=== PATIENT | male | born 1930 | race Caucasian/White ===

== ENCOUNTER 2016-06-13 01:35 | Inpatient (IN) | payer OTHER ==
[~2016-06-13] VITALS: Ht 185.4 cm; Wt 98.3 kg
[~2016-06-13 01:35] MED LIST: CMD5 PO; ENOX0.8I8 SQ
[2016-06-13] MEDS ORDERED: ALBUT/IPRATROP 3MG/0.5MG NEB 3 ML VIAL INH STA (02:20)
[2016-06-13] MEDS ORDERED: METHYLPREDNISOLONE 125 MG VIAL IV STA (02:20)
[2016-06-13] MEDS ORDERED: WARF5TAB90 PO (02:23)
[2016-06-13 03:10] LABS: BASO % 0.7 %; BASO ABS # 0.05 K/uL (0-0.2); COMPLETE YES; EOS % 6.6 %; HEMATOCRIT 44.8 % (42-52); IG% 0.1 %; LYMPH ABS # 1.13 K/uL (1.2-3.4); MEAN CELL VOLUME 92.2 fL (80-100); MEAN CORPUSCULAR HEMOGLOBIN 32.5 pg (25-34); MEAN CORPUSCULAR HGB CONC 35.3 g/dl (32-36); MEAN PLATELET VOLUME 9.9 fL (7.4-10.4); MONO % 8.9 %; NEUT % 67.7 %; PLATELET COUNT 176 K/uL (130-400); RED BLOOD COUNT 4.86 M/uL (4.7-6.1); WHITE BLOOD COUNT 7.08 K/uL (4.8-10.8)
[2016-06-13 03:13] LABS: POINT OF CARE TROPONIN I 0.02 ng/ml (0-0.045)
[2016-06-13 03:19] LABS: INR 2.7 (0.9-1.1); PARTIAL THROMBOPLASTIN RATIO 1.4; PROTHROMBIN TIME (PATIENT) 29.7 SECONDS (9.0-12.0)
[2016-06-13 03:29] LABS: BUN/CREATININE RATIO 15.4 (10-20); CREATININE 0.91 mg/dl (0.60-1.40); POTASSIUM 3.9 mmol/L (3.5-5.1)
[2016-06-13 03:34] LABS: ALB/GLOB RATIO 1.2 (0.9-2); CKMB/CK RATIO 2.8 (0-3.0)
[2016-06-13] MEDS ORDERED: ONDANSETRON INJ 2 MG/ML 2 ML VIAL IV PRN (05:00)
[2016-06-13] MEDS ORDERED: LEVALBUTEROL/IPRATROPIUM NEB INH PRN (05:00)
[2016-06-13] MEDS ORDERED: LACTATED RINGER'S 1000ML 1,000 ML IV ONE (05:00)
[2016-06-13] MEDS ORDERED: TRAMADOL HCL 50 MG TAB PO PRN (05:00)
[2016-06-13] MEDS ORDERED: ACETAMINOPHEN 325 MG TAB PO PRN (05:00)
--- NOTE | 2016-06-13 05:04 | EMERGENCY ROOM VISIT NOTE ---
History Report prepared by Rey: Nancy Tamayo Under the Supervision of: Dr. Wander Anderson M.D. First contact with patient: 02:19 Chief Complaint: SHORTNESS OF BREATH Stated Complaint: SHORTNESS OF BREATH,RAPID PULSE,BACK PAIN Nursing Triage Summary: sob started a week ago and has increased, using inhaler with little relief, cough, having trouble sleeping unless in chair, tongiht develoepd lower left back pain last wednesday had bladder ca treatment History of Present Illness The patient is an 85 year old male who presents to the Emergency Room with complaints of worsening shortness of breath with onset one week ago. The patient is a retired doctor. He had been having upper respiratory infection symptoms in the past few days, including have a dry cough. Tonight, the patient is having left sided pleuritic pain on inhalation.He has been having inspiratory and expiratory wheezing. Tonight, his shortness of breath was worsened to the point of not being able to lie flat. He has been taking Ventolin , last taking a puff one hour ago. He notes that this is not normal for him as usually he is fit, exercising daily. Now he is having difficulty walking short distances. The patient notes that he is currently being treated for bladder cancer. He is on Coumadin for a history of PE. He denies cardiac history. The patient has had his flu shot this year. He has a childhood history of reactive airway disease. Pt denies LOC, headache, fevers, chills, diaphoresis, visual changes, neck pain, chest pain, nausea, vomiting, abdominal pain, back pain, melena, hematochezia, urinary symptoms, numbness, weakness, lymphadenopathy, rash, or other complaints. Source of History: patient Onset: one week ago Position: chest Quality: other (shortness of breath) Timing: other Modifying Factors (Worsening): other (lying flat) Review of Systems See HPI for pertinent positives and negatives. A total of ten systems were reviewed and were otherwise negative. Past Medical & Surgical Medical Problems: (1) Anticoagulated on Coumadin (2) Bladder CA in situ (3) DVT (deep venous thrombosis) (4) Localized, primary osteoarthritis of the lower leg (5) Pulmonary embolism (6) Respiratory failure, acute Surgical Problems: (1) S/P cholecystectomy Family History No pertinent family history Social History Smoking Status: Never Smoker Drug Use: none Housing Status: lives with family Occupation Status: retired Current/Historical Medications Scheduled Warfarin Sodium (Coumadin), 5 MG PO DAILY Allergies Coded Allergies: NSAIDs (Verified Allergy, Severe, WHEEZING, 06/10/16) Physical Exam Vital Signs Date Time Temp Pulse Resp B/P Pulse Ox O2 Delivery O2 Flow Rate FiO2 06/13/16 03:14 98 18 149/78 95 06/13/16 02:15 91 06/13/16 02:10 93 Nasal Cannula 2.0 06/13/16 02:01 91 Room Air 06/13/16 01:43 36.6 97 24 158/80 92 Room Air Physical Exam GENERAL: Awake, alert, dyspneic, in no distress HENT: Normocephalic, atraumatic. Oropharynx unremarkable. EYES: Normal conjunctiva. Sclera non-icteric. NECK: Supple. No nuchal rigidity. FROM. No JVD. RESPIRATORY: Respiratory wheezes bilaterally. CARDIAC: Regular rate, normal rhythm. Extremities warm and well perfused. Pulses equal. ABDOMEN: Soft, non-distended. No tenderness to palpation. No rebound or guarding. No masses. RECTAL: Deferred. MUSCULOSKELETAL: Chest examination reveals no tenderness. The back is symmetrical on inspection without obvious abnormality. There is no CVA tenderness to palpation. No joint edema. LOWER EXTREMITIES: Right calf is slightly larger than the left but both are non- tender. 2+ edema. Chronic venous discoloration. NEURO: Normal sensorium. No sensory or motor deficits noted. SKIN: No rash or jaundice noted. Medical Decision & Procedures ER Provider Diagnostic Interpretation: Chest x-ray. Findings: A chest x-ray was performed and revealed no pneumothorax , effusion, infiltrate, pulmonary edema, free air under the diaphragm, or wide mediastinum. Laboratory Results 06/13/16 02:40 Red Blood Count 4.86, Mean Corpuscular Volume 92.2, Mean Corpuscular Hemoglobin 32.5, Mean Corpuscular Hemoglobin Concent 35.3, Mean Platelet Volume 9.9, Neutrophils (%) (Auto) 67.7, Lymphocytes (%) (Auto) 16.0, Monocytes (%) (Auto) 8.9, Eosinophils (%) (Auto) 6.6, Basophils (%) (Auto) 0.7, Neutrophils # (Auto) 4.79, Lymphocytes # (Auto) 1.13, Monocytes # (Auto) 0.63, Eosinophils # (Auto) 0.47, Basophils # (Auto) 0.05 06/13/16 02:40 Test 06/13/16 02:40 06/13/16 02:50 06/13/16 02:53 06/13/16 03:00 White Blood Count 7.08 K/uL (4.8-10.8) Red Blood Count 4.86 M/uL (4.7-6.1) Hemoglobin 15.8 g/dL (14.0-18.0) Hematocrit 44.8 % (42-52) Mean Corpuscular Volume 92.2 fL (80-100) Mean Corpuscular Hemoglobin 32.5 pg (25-34) Mean Corpuscular Hemoglobin Concent 35.3 g/dl (32-36) Platelet Count 176 K/uL (130-400) Mean Platelet Volume 9.9 fL (7.4-10.4) Neutrophils (%) (Auto) 67.7 % Lymphocytes (%) (Auto) 16.0 % Monocytes (%) (Auto) 8.9 % Eosinophils (%) (Auto) 6.6 % Basophils (%) (Auto) 0.7 % Neutrophils # (Auto) 4.79 K/uL (1.4-6.5) Lymphocytes # (Auto) 1.13 K/uL (1.2-3.4) Monocytes # (Auto) 0.63 K/uL (0.11-0.59) Eosinophils # (Auto) 0.47 K/uL (0-0.5) Basophils # (Auto) 0.05 K/uL (0-0.2) RDW Standard Deviation 45.5 fL (36.4-46.3) RDW Coefficient of Variation 13.5 % (11.5-14.5) Immature Granulocyte % (Auto) 0.1 % Immature Granulocyte # (Auto) 0.01 K/uL (0.00-0.02) Prothrombin Time 29.7 SECONDS (9.0-12.0) Prothromb Time International Ratio 2.7 (0.9-1.1) Activated Partial Thromboplast Time 36.8 SECONDS (21.0-31.0) Partial Thromboplastin Ratio 1.4 Anion Gap 9.0 mmol/L (3-11) Est Creatinine Clear Calc Drug Dose 76.4 ml/min Estimated GFR () 90.0 Estimated GFR (Non- 77.7 BUN/Creatinine Ratio 15.4 (10-20) Calcium Level 9.0 mg/dl (8.5-10.1) Total Bilirubin 0.6 mg/dl (0.2-1) Aspartate Amino Transf (AST/SGOT) 19 U/L (15-37) Alanine Aminotransferase (ALT/SGPT) 26 U/L (12-78) Alkaline Phosphatase 76 U/L (45-117) Total Creatine Kinase 213 U/L (39-308) Creatine Kinase MB 5.9 ng/ml (0.5-3.6) Creatine Kinase MB Ratio 2.8 (0-3.0) Total Protein 7.0 gm/dl (6.4-8.2) Albumin 3.8 gm/dl (3.4-5.0) Globulin 3.2 gm/dl (2.5-4.0) Albumin/Globulin Ratio 1.2 (0.9-2) Bedside D-Dimer 290 ng/mlFEU (0-450) Bedside Troponin I 0.020 ng/ml (0-0.045) HM-Umq-I-Type Natriuretic Peptide 142 pg/ml (0-1800) Bedside Lactic Acid Venous 1.00 mmol/L (0.90-1.70) Influenza Type A Antigen Neg for Influ A (NEG) Influenza Type B Antigen Neg for Influ B (NEG) Test 06/13/16 04:16 Laboratory results reviewed by me Medications Administered Medications (Trade) Dose Ordered Sig/Marline Route Start Time Stop Time Status Last Admin Dose Admin Albuterol/ Ipratropium (Duoneb) 3 ml NOW STAT INH 06/13/16 02:20 06/13/16 02:23 DC 06/13/16 02:51 3 ML Methylprednisolone Sodium Succinate (Solu-Medrol IV) 125 mg NOW STAT IV 06/13/16 02:20 06/13/16 02:23 DC 06/13/16 03:09 125 MG ECG Indication: SOB/dyspnea Rate (beats per minute): 89 Rhythm: normal sinus Findings: nonspecific-ST abn, no acute ischemic change ED Course 0230: The patient was evaluated in room B9. A complete history and physical exam was performed. Medical Decision Triage Nursing notes reviewed. The patient's presentation and history were concerning for shortness of breath and hypoxia. Etiologies such as pneumonia, COPD, reactive airway disease, CHF, cardiac ischemia, pulmonary embolism, pneumothorax, musculoskeletal, infections, gastrointestinal, as well as others were entertained. Patient was evaluated. He had wheezing on examination. The patient was given a DuoNeb. He was feeling better with this. He had hypoxia noted at home down to 86 for his home pulse oximeter. He was down to 90-91 year in the Emergency Room. He was doing better with supplemental oxygen. Due to the wheezing I discussed the use of steroids. He had recently been given BCG. Given the wheezing anything steroids are indicated. The patient was in agreement. CBC was unremarkable. INR was therapeutic. The patient had an negative chemistry panel, and LFTs. BNP, troponin, and d-dimer were all negative. The patient's chest x-ray revealed no evidence of pneumonia. He does have a remote history of reactive airways. This seems to be most consistent with a reactive airway/ COPD type of issue. The patient is requiring supplemental oxygen. Consultation was made with Dr. Artis. The patient was evaluated in the Emergency Room and admitted for further treatment. The chart was completed utilizing [employer] Speech voice recognition software. Grammatical errors, random word insertions, pronoun errors, and incomplete sentences are an occasional consequence of this system due to software limitations, ambient noise, and hardware issues. Any formal questions or concerns about the content, text, or information contained within the body of this dictation should be directly addressed to the physician for clarification. Impression Primary Impression: Reactive airway disease Additional Impressions: therapeutic INR Hypoxia Scribe Attestation The scribe's documentation has been prepared under my direction and personally reviewed by me in its entirety. I confirm that the note above accurately reflects all work, treatment, procedures, and medical decision making performed by me. Departure Information Dispostion Being Evaluated By Hospitalist Referrals Wander Harvey III, M.D. (PCP) Patient Instructions My [facility] Problem Qualifiers
[2016-06-13] MEDS ORDERED: LEVALBUTEROL 1.25MG/0.5ML NEB INH PRN (05:15)
[2016-06-13] MEDS ORDERED: IPRATROPIUM BROMIDE NEB SOLN 0.02% 2.5 ML VIAL INH PRN (05:15)
[2016-06-13 05:21] LABS: ARTERIAL BLOOD GAS HCO3 28 mmol/L (19-24); ARTERIAL BLOOD GAS PO2 80 mm/Hg (80-95); ARTERIAL BLOOD GAS pH 7.43 (7.35-7.45)
[2016-06-13 05:23] LABS: ALLEN TEST POS (POS); O2 ADMINISTRATION 2L
[2016-06-13 05:49] LABS: MAGNESIUM 2.2 mg/dl (1.8-2.4); THYROID STIMULATING HORMONE 1.9 uIu/ml (0.300-4.500)
[2016-06-13 06:34] VITALS: BP 172/81; PULSE 100; TEMP 36.4; O2SAT 92; Ht 185.4 cm; Wt 98.3 kg
[2016-06-13 06:52] LABS: URINE APPEARANCE CLEAR (CLEAR); URINE BILIRUBIN NEG (NEG); URINE COLOR DK YELLOW; URINE NITRITE NEG (NEG); URINE SPECIFIC GRAVITY 1.017 (1.000-1.030); UROBILINOGEN NEG (NEG)
[2016-06-13 06:58] LABS: MANUAL MICROSCOPIC REQUIRED? NO; REVIEW REQ? NO
--- NOTE | 2016-06-13 08:43 | HISTORY & PHYSICAL EXAMINATION ---
DATE OF ADMISSION: 06/13/2016 PRIMARY CARE DOCTOR: Dr. Harvey. CHIEF COMPLAINT: Shortness of breath, low O2 sats. HISTORY OF PRESENT ILLNESS: Medical history significant for history of pulmonary embolism on anticoagulation , recent diagnosis of bladder cancer sp surgery sp intravesical BCG txm asthma as per records, skin cancer as per records. Recent confinement October 2013 for cholelithiasis sp cholecystectomy. Px received flu shot last week. Few days history of dry cough symptoms, increasing shortness of breath. Denies aspiration. Denies fever, chills. At home O2 sats 80s on pluse ox. Sx not improving with inhalers. At the Emergency Room, the patient received Solu-Medrol, albuterol for bronchitis. MEDICAL HISTORY: As above. SURGERIES: He has had knee surgery, appendectomy, cholecystectomy, bladder tumor removal, cataract surgery, hip surgery. HOME MEDICATIONS: Include Coumadin. ALLERGIES: NSAIDS. FAMILY HISTORY: Family history of heart disease. PERSONAL AND SOCIAL HISTORY: nonsmoker, no chronic intake of alcohol. Retired physician. REVIEW OF SYSTEMS: As per HPI, all other ROS negative. PHYSICAL EXAMINATION: VITAL SIGNS: Blood pressure was noted to be 140/80, pulse rate 92, RR 22, temperature 36.4, sats 94 on 2 liters. GENERAL: Noted to be in minimal respiratory distress, looks younger for stated age. SKIN: Normal color. HEAD, EYES, EARS, NOSE, AND THROAT: Closter palpebral conjunctivae. Dry mucosa. nasal cannula in place NECK: No JVD. supple CHEST: Decreased breath sounds. Expiratory wheezes. HEART: Regular rate and rhythm. ABDOMEN: Soft. EXTREMITIES: Venous stasis. NEUROLOGIC EXAMINATION: No gross focality. LABORATORY DATA: Hemoglobin was noted to be 15.8, hematocrit 44.8. White cell count noted to be 7, platelets noted to be 176. Sodium 140, chloride 103, CO2 27, BUN 40, creatinine 0.9, glucose 105. trop 0, ddimer N, INR 2.2 Chest x-ray elevated hemidiaphragm, no infiltrate. ASSESSMENT AND PLAN: 1. Acute hypoxemic respiratory failure secondary to bronchitis. No sepsis. 2. hx PE o coumadin INR tx 3. History of bladder cancer status post surgery recent intravesical BCG tx. PLAN: GMF Supplemental O2. Baseline ABG. nebs. steroids RTC, prn. DVT prophylaxis. Coumadin INR 2-3. FULL CODE. MTDD
[2016-06-13] MEDS: LEVALBUTEROL 1.25MG/0.5ML NEB INH SCH ×3 (09:00→19:48)
[2016-06-13] MEDS ORDERED: LEVALBUTEROL/IPRATROPIUM NEB INH SCH (09:00)
[2016-06-13] MEDS: IPRATROPIUM BROMIDE NEB SOLN 0.02% 2.5 ML VIAL INH SCH ×3 (09:00→19:48)
[2016-06-13 10:02] VITALS: PULSE 64; O2SAT 94
--- NOTE | 2016-06-13 10:05 | DIAGNOSTIC IMAGING REPORT ---
SINGLE VIEW CHEST CLINICAL HISTORY: Wheezing. Dyspnea. FINDINGS: 2 AP, portable, upright chest radiographs are compared to study dated 04/09/2011. The examination is degraded by portable technique and patient rotation. The heart is top normal for projection. There is atherosclerotic calcification of the thoracic aorta. The pulmonary vasculature is noncongested. Findings suggest emphysema. Chronic interstitial thickening is unchanged. No airspace consolidation or large pleural effusion is identified. There is mild elevation of left hemidiaphragm with associated left basilar atelectasis. Apical scarring is observed. No pneumothorax is seen. The skeletal structures are osteopenic. The bony thorax is grossly intact. IMPRESSION: Findings suggest emphysema. There is no acute cardiopulmonary abnormality. Electronically signed by: Navid Fuentes M.D. 06/13/2016 10:03 AM Dictated Date/Time: 06/13/2016 10:01 AM
[2016-06-13] MEDS: METHYLPREDNISOLONE IV 40 MG in SYRINGE 0 ML IV SCH ×2 (11:49→19:52)
[2016-06-13 14:42] VITALS: PULSE 91; O2SAT 95
[2016-06-13 15:22] VITALS: BP 153/77; PULSE 81; TEMP 36.6; O2SAT 91
[2016-06-13] MEDS ORDERED: BENZONATATE 100MG CAP PO ONE (16:00)
[2016-06-13] MEDS ORDERED: WARFARIN SOD 5 MG TAB PO SCH (16:00)
[2016-06-13 19:49] VITALS: PULSE 98; O2SAT 95
[2016-06-13 20:00] VITALS: O2SAT 93
[2016-06-13] MEDS: BENZONATATE 100MG CAP PO SCH (21:12)
[2016-06-13] MEDS ORDERED: COUGH DROP (SUGAR FREE) LOZ 24 LOZ/1 BOX PO PRN (23:30)
[2016-06-14] VITALS (9 sets, daily range): BP systolic 114–159; BP diastolic 73–82; PULSE 61–102; TEMP 36.4–36.7; O2SAT 92–96
[2016-06-14] MEDS: IPRATROPIUM BROMIDE NEB SOLN 0.02% 2.5 ML VIAL INH SCH ×3 (02:03→13:40)
[2016-06-14] MEDS: LEVALBUTEROL 1.25MG/0.5ML NEB INH SCH ×3 (02:03→13:40)
[2016-06-14] MEDS: METHYLPREDNISOLONE IV 40 MG in SYRINGE 0 ML IV SCH ×3 (03:54→19:45)
[2016-06-14 07:21] LABS: COMPLETE YES; IG% 0.1 %; LYMPH % 6.3 %; LYMPH ABS # 0.55 K/uL (1.2-3.4); MEAN CELL VOLUME 92.6 fL (80-100); MEAN CORPUSCULAR HEMOGLOBIN 33.2 pg (25-34); MEAN CORPUSCULAR HGB CONC 35.9 g/dl (32-36); MEAN PLATELET VOLUME 9.6 fL (7.4-10.4); MONO % 4.2 %; NEUT % 89.4 %; PLATELET COUNT 166 K/uL (130-400); RED BLOOD COUNT 4.43 M/uL (4.7-6.1); WHITE BLOOD COUNT 8.78 K/uL (4.8-10.8)
[2016-06-14 07:25] LABS: INR 3.3 (0.9-1.1); PROTHROMBIN TIME (PATIENT) 37.5 SECONDS (9.0-12.0)
[2016-06-14] MEDS: BENZONATATE 100MG CAP PO SCH ×3 (08:57→21:27)
--- NOTE | 2016-06-14 09:20 | DIAGNOSTIC IMAGING REPORT ---
CHEST 2 VIEWS ROUTINE CLINICAL HISTORY: Bronchitis/Pneumonia SHORTNESS OF BREATH, COUGH. COMPARISON STUDY: 06/13/2016 FINDINGS: The patient is mildly hyperinflated. The heart is normal in size. There is no focal pulmonary consolidation. Rounded opacities of both lung bases are felt to represent nipple shadows. There are subsegmental right basilar atelectatic changes.[ There is suspected right lower lobe bronchial wall thickening IMPRESSION: 1. Hyperinflation 2. Mild chronic interstitial thickening. No evidence of lobar consolidation 3. Right basilar subsegmental atelectasis 4. Suspected mild right lower lobe bronchial wall thickening Electronically signed by: Jimmy Smith M.D. 06/14/2016 9:18 AM Dictated Date/Time: 06/14/2016 9:16 AM
--- NOTE | 2016-06-14 13:09 | Progress Note ---
Internal Med Progress Note Date of Service: Jun 14, 2016. Provider Documentation: SUBJECTIVE: The patient was seen and examined Feels a lot better today Ambulating without any difficulty OBJECTIVE: Vital Signs-as noted below Exam: General-No distress at rest Eyes-normal ENT-normal Neck-supple Lungs-Minimally decreased breath sound bilaterally No wheezing Heart-Regular,no murmur Abdomen-Benign,no masses,bowel sound present Extremities-No edema Neuro-AAOx3 Lab data as noted below. ASSESSMENT & PLAN: Acute hypoxemic respiratory failure secondary to bronchitis. S/P Treatment for Flu as an OP Denies any H/O COPD/Asthma CXR -Emphysema No sepsis. Oxygen and Steroid and Bronchodilators Check CXR -no infiltration No signs of infection No antibiotic 2 step before discharge History of bladder cancer status post surgery recent intravesical BCG tx. H/O PE on Coumadin INR therapeutic DVT prophylaxis. Coumadin INR 2-3. FULL CODE. Vital Signs: Date Time Temp Pulse Resp B/P Pulse Ox O2 Delivery O2 Flow Rate FiO2 06/14/16 07:45 Nasal Cannula 2.0 06/14/16 07:25 36.7 95 18 114/73 96 Nasal Cannula 2.0 06/14/16 07:05 93 16 95 Nasal Cannula 2.0 96 06/14/16 02:03 83 16 95 Nasal Cannula 2.0 06/14/16 00:14 36.4 102 20 149/82 92 Nasal Cannula 2.0 06/14/16 00:00 93 Nasal Cannula 2.0 Humidified Oxygen 06/13/16 20:00 93 Nasal Cannula 2.0 Humidified Oxygen 06/13/16 19:49 98 16 95 Nasal Cannula 2.0 06/13/16 15:45 Nasal Cannula 3.0 06/13/16 15:22 36.6 81 20 153/77 91 Nasal Cannula 2.0 06/13/16 14:42 91 16 95 Nasal Cannula 2.0 Lab Results: Results Past 24 Hours Test 06/14/16 06:52 Range/Units White Blood Count 8.78 4.8-10.8 K/uL Red Blood Count 4.43 4.7-6.1 M/uL Hemoglobin 14.7 14.0-18.0 g/dL Hematocrit 41.0 42-52 % Mean Corpuscular Volume 92.6 80-100 fL Mean Corpuscular Hemoglobin 33.2 25-34 pg Mean Corpuscular Hemoglobin Concent 35.9 32-36 g/dl Platelet Count 166 130-400 K/uL Mean Platelet Volume 9.6 7.4-10.4 fL Neutrophils (%) (Auto) 89.4 % Lymphocytes (%) (Auto) 6.3 % Monocytes (%) (Auto) 4.2 % Eosinophils (%) (Auto) 0.0 % Basophils (%) (Auto) 0.0 % Neutrophils # (Auto) 7.85 1.4-6.5 K/uL Lymphocytes # (Auto) 0.55 1.2-3.4 K/uL Monocytes # (Auto) 0.37 0.11-0.59 K/uL Eosinophils # (Auto) 0.00 0-0.5 K/uL Basophils # (Auto) 0.00 0-0.2 K/uL RDW Standard Deviation 46.3 36.4-46.3 fL RDW Coefficient of Variation 13.7 11.5-14.5 % Immature Granulocyte % (Auto) 0.1 % Immature Granulocyte # (Auto) 0.01 0.00-0.02 K/uL Prothrombin Time 37.5 9.0-12.0 SECONDS Prothromb Time International Ratio 3.3 0.9-1.1
[2016-06-14] MEDS ORDERED: NURSING VERBAL MED ORDER ONE (13:45)
[2016-06-14] MEDS: LEValbuterol HFA 15GM INHALER INH SCH ×2 (21:28→23:52)
[2016-06-14] MEDS: IPRATROPIUM BROMIDE HFA INHALER INH SCH ×2 (22:02→23:51)
[2016-06-15] VITALS: O2SAT 93
[2016-06-15 00:20] VITALS: BP 156/80; PULSE 90; TEMP 36.4; O2SAT 92
[2016-06-15] MEDS: METHYLPREDNISOLONE IV 40 MG in SYRINGE 0 ML IV SCH ×2 (04:11→11:34)
[2016-06-15] MEDS: IPRATROPIUM BROMIDE HFA INHALER INH SCH ×2 (06:11→11:35)
[2016-06-15] MEDS: LEValbuterol HFA 15GM INHALER INH SCH ×2 (06:11→11:34)
[2016-06-15 06:19] LABS: COMPLETE YES; HEMATOCRIT 43.8 % (42-52); IG% 0.3 %; LYMPH % 4.7 %; LYMPH ABS # 0.49 K/uL (1.2-3.4); MEAN CELL VOLUME 92.8 fL (80-100); MEAN CORPUSCULAR HEMOGLOBIN 32.2 pg (25-34); MEAN CORPUSCULAR HGB CONC 34.7 g/dl (32-36); MEAN PLATELET VOLUME 9.6 fL (7.4-10.4); MONO % 5.1 %; NEUT % 89.9 %; PLATELET COUNT 181 K/uL (130-400); RED BLOOD COUNT 4.72 M/uL (4.7-6.1); WHITE BLOOD COUNT 10.52 K/uL (4.8-10.8)
[2016-06-15 06:57] LABS: INR 2.9 (0.9-1.1); PROTHROMBIN TIME (PATIENT) 32.3 SECONDS (9.0-12.0)
[2016-06-15 07:07] VITALS: BP 137/75; PULSE 86; TEMP 36.5; O2SAT 92
--- NOTE | 2016-06-15 08:52 | Clinical Documentation Query ---
[facility] CL[facility]ICAL [facility] QUERY Clinical documentation includes a diagnosis of: Acute Hypoxemic Respiratory Failure. Due to stringent requirements by our coding department, multiple clinical indicators associated with this diagnosis must be present in order for this to be coded/captured within the medical record. If appropriate, please document 2 or more of the following clinical indicators in daily progress notes and the discharge summary. If you feel the diagnosis of acute respiratory failure was made in error, or do not agree with it, simply discontinue documentation thereof. Acute Respiratory Failure indicators include:On Admission:Air hunger,Use of accessory muccles of Respiration ,inability to speak full sentance * Respirations >28 * Air hunger * Use of accessory muscles of respiration * Inability to speak in full sentences * Cyanosis * Pulse ox <90% RA or <95% on O2 *pH <7.35 or >7.45 * pO2 < 60 mm Hg (or 10mm below COPD patient's baseline) * pCO2 >50mm Hg (or 10mm above COPD patient's baseline) * mechanical ventilation * Increased work of breathing * Tachypnea IF IN AGREEMENT, YOU MUST DOCUMENT ABOVE DIAGNOSTIC STATEMENT IN DAILY PROGRESS NOTES AND DISCHARGE SUMMARY. This document is not part of the patient's record. Thank You, Samson Pardo, RN [phone]
[2016-06-15] MEDS: BENZONATATE 100MG CAP PO SCH (09:37)
--- NOTE | 2016-06-15 11:27 | Progress Note ---
Internal Med Progress Note Date of Service: Jun 15, 2016. Provider Documentation: SUBJECTIVE: The patient was seen and examined Feels a lot better Ambulating without any difficulty Wants to go home Will have 2 steps before discharge OBJECTIVE: Vital Signs-as noted below Exam: General-No distress at rest Eyes-normal ENT-normal Neck-supple Lungs-Minimally decreased breath sound bilaterally No wheezing Heart-Regular,no murmur Abdomen-Benign,no masses,bowel sound present Extremities-No edema Neuro-AAOx3 Lab data as noted below. ASSESSMENT & PLAN: Acute hypoxemic respiratory failure secondary to bronchitis. S/P Treatment for Flu as an OP Denies any H/O COPD/Asthma Admitted with SOB,Excessive use of accessory muscles of respiration,Tachypnea - 24/min CXR -Emphysema No sepsis. Oxygen and Steroid and Bronchodilators Check CXR -no infiltration : No antibiotics Clinically much better ,ambulating without any difficulty 2 step before discharge today History of bladder cancer status post surgery recent intravesical BCG tx. H/O PE on Coumadin INR therapeutic DVT prophylaxis. Coumadin INR 2-3. FULL CODE. Vital Signs: Date Time Temp Pulse Resp B/P Pulse Ox O2 Delivery O2 Flow Rate FiO2 06/15/16 07:07 36.5 86 20 137/75 92 Room Air 06/15/16 00:20 36.4 90 20 156/80 92 2.0 06/15/16 00:00 93 Room Air 2.0 Nasal Cannula Humidified Oxygen 06/14/16 20:00 93 Room Air 2.0 Nasal Cannula Humidified Oxygen 06/14/16 16:11 36.5 100 16 159/80 94 Nasal Cannula 2.0 06/14/16 15:50 Nasal Cannula 2.0 06/14/16 15:42 36.5 100 16 159/80 94 Nasal Cannula 2.0 06/14/16 13:40 61 16 96 Nasal Cannula 2.0 Lab Results: Results Past 24 Hours Test 06/15/16 05:50 Range/Units White Blood Count 10.52 4.8-10.8 K/uL Red Blood Count 4.72 4.7-6.1 M/uL Hemoglobin 15.2 14.0-18.0 g/dL Hematocrit 43.8 42-52 % Mean Corpuscular Volume 92.8 80-100 fL Mean Corpuscular Hemoglobin 32.2 25-34 pg Mean Corpuscular Hemoglobin Concent 34.7 32-36 g/dl Platelet Count 181 130-400 K/uL Mean Platelet Volume 9.6 7.4-10.4 fL Neutrophils (%) (Auto) 89.9 % Lymphocytes (%) (Auto) 4.7 % Monocytes (%) (Auto) 5.1 % Eosinophils (%) (Auto) 0.0 % Basophils (%) (Auto) 0.0 % Neutrophils # (Auto) 9.46 1.4-6.5 K/uL Lymphocytes # (Auto) 0.49 1.2-3.4 K/uL Monocytes # (Auto) 0.54 0.11-0.59 K/uL Eosinophils # (Auto) 0.00 0-0.5 K/uL Basophils # (Auto) 0.00 0-0.2 K/uL RDW Standard Deviation 46.8 36.4-46.3 fL RDW Coefficient of Variation 13.8 11.5-14.5 % Immature Granulocyte % (Auto) 0.3 % Immature Granulocyte # (Auto) 0.03 0.00-0.02 K/uL Prothrombin Time 32.3 9.0-12.0 SECONDS Prothromb Time International Ratio 2.9 0.9-1.1
[2016-06-15] MEDS ORDERED: PRVHFAIN INH (12:48)
[2016-06-15] MEDS ORDERED: PRD10 PO (12:48)
[2016-06-15] MEDS ORDERED: OXGN (12:49)
--- NOTE | 2016-06-15 12:51 | Discharge Instructions ---
Discharge Instructions Admission Reason for Admission: Respiratory Failure, Acute Discharge Discharge Diagnosis / Problem: COPD exacerbation Discharge Goals Goal(s): Prevent Disease Progression Activity Recommendations Activity Limitations: resume your previous activity . Instructions / Follow-Up Instructions / Follow-Up Dr Harvey on 06/22/2016 at 11:10AM Current Hospital Diet Patient's current hospital diet: AHA Diet (Heart Healthy) Discharge Diet Recommended Diet: Regular Diet Pending Studies Studies pending at discharge: no Medical Emergencies . Who to Call and When: Medical Emergencies: If at any time you feel your situation is an emergency, please call 911 immediately. . Non-Emergent Contact Non-Emergency issues call your: Primary Care Provider . . "Provider Documentation" section prepared by Mandy Horn. VTE Core Measure Inpt VTE Proph given/why not?: SCD's (Was ambulant)
[2016-06-15 12:57] VITALS: BP 137/75; PULSE 86; TEMP 36.5; O2SAT 92
--- NOTE | 2016-06-16 08:28 | Discharge Summary ---
Discharge Summary Admission Date: Jun 13, 2016 at 04:24 Discharge Date: Jun 15, 2016 Discharge Disposition: Home Principal Diagnosis: Acute Hypoxic Respiratory failure secondary to Bronchitis,Emphysema Secondary Diagnoses/Problems: Please see H&P Medication Reconciliation New Medications: Albuterol (Ventolin Hfa) 60 Puffs/5400 Mcg Aers 2 PUFF INH Q6HWA PRN for Wheezing, #1 Oxygen (Oxygen) Gas 2 LITERS NA PRN, #1 Prednisone (Prednisone) 10 Mg Tab 10 MG PO UD, #30 4 po daily for 3 days,3 po daily for 3 days,2 po daily for 3 days and then 1 po daily for 3 days Continued Medications: Warfarin Sodium (Coumadin) 5 Mg Tab 5 MG PO DAILY, TAB Admission Information HPI (per Admitting provider): DATE OF ADMISSION: 06/13/2016 PRIMARY CARE DOCTOR: Dr. Harvey. CHIEF COMPLAINT: Shortness of breath, low O2 sats. HISTORY OF PRESENT ILLNESS: Medical history significant for history of pulmonary embolism on anticoagulation , recent diagnosis of bladder cancer sp surgery sp intravesical BCG txm asthma as per records, skin cancer as per records. Recent confinement October 2013 for cholelithiasis sp cholecystectomy. Px received flu shot last week. Few days history of dry cough symptoms, increasing shortness of breath. Denies aspiration. Denies fever, chills. At home O2 sats 80s on pluse ox. Sx not improving with inhalers. At the Emergency Room, the patient received Solu-Medrol, albuterol for bronchitis. MEDICAL HISTORY: As above. SURGERIES: He has had knee surgery, appendectomy, cholecystectomy, bladder tumor removal, cataract surgery, hip surgery. HOME MEDICATIONS: Include Coumadin. ALLERGIES: NSAIDS. FAMILY HISTORY: Family history of heart disease. PERSONAL AND SOCIAL HISTORY: nonsmoker, no chronic intake of alcohol. Retired physician. REVIEW OF SYSTEMS: As per HPI, all other ROS negative. PHYSICAL EXAMINATION: VITAL SIGNS: Blood pressure was noted to be 140/80, pulse rate 92, RR 22, temperature 36.4, sats 94 on 2 liters. GENERAL: Noted to be in minimal respiratory distress, looks younger for stated age. SKIN: Normal color. HEAD, EYES, EARS, NOSE, AND THROAT: [place] palpebral conjunctivae. Dry mucosa. nasal cannula in place NECK: No JVD. supple CHEST: Decreased breath sounds. Expiratory wheezes. HEART: Regular rate and rhythm. ABDOMEN: Soft. EXTREMITIES: Venous stasis. NEUROLOGIC EXAMINATION: No gross focality. LABORATORY DATA: Hemoglobin was noted to be 15.8, hematocrit 44.8. White cell count noted to be 7, platelets noted to be 176. Sodium 140, chloride 103, CO2 27, BUN 40, creatinine 0.9, glucose 105. trop 0, ddimer N, INR 2.2 Chest x-ray elevated hemidiaphragm, no infiltrate. ASSESSMENT AND PLAN: 1. Acute hypoxemic respiratory failure secondary to bronchitis. No sepsis. 2. hx PE o coumadin INR tx 3. History of bladder cancer status post surgery recent intravesical BCG tx. PLAN: GMF Supplemental O2. Baseline ABG. nebs. steroids RTC, prn. DVT prophylaxis. Coumadin INR 2-3. FULL CODE. Hospital Course Acute hypoxemic respiratory failure secondary to bronchitis. S/P Treatment for Flu as an OP Denies any H/O COPD/Asthma Admitted with SOB,Excessive use of accessory muscles of respiration,Tachypnea - 24/min CXR -Emphysema No sepsis. Oxygen and Steroid and Bronchodilators Check CXR -no infiltration : No antibiotics Clinically much better ,ambulating without any difficulty 2 step before discharge today-does not require Oxygen Oxygen prescribed as per request from the patient History of bladder cancer status post surgery recent intravesical BCG tx. H/O PE on Coumadin INR therapeutic DVT prophylaxis. Coumadin INR 2-3. FULL CODE. Total time spent on discharge = 35 minutes This includes examination of the patient, discharge planning, medication reconciliation, and communication with other providers. Discharge Instructions Admission Reason for Admission: Respiratory Failure, Acute Discharge Discharge Diagnosis / Problem: COPD exacerbation Discharge Goals Goal(s): Prevent Disease Progression Activity Recommendations Activity Limitations: resume your previous activity . Instructions / Follow-Up Instructions / Follow-Up Dr Harvey on 06/22/2016 at 11:10AM Current Hospital Diet Patient's current hospital diet: AHA Diet (Heart Healthy) Discharge Diet Recommended Diet: Regular Diet Pending Studies Studies pending at discharge: no Medical Emergencies . Who to Call and When: Medical Emergencies: If at any time you feel your situation is an emergency, please call 911 immediately. . Non-Emergent Contact Non-Emergency issues call your: Primary Care Provider . . "Provider Documentation" section prepared by Mandy Horn. VTE Core Measure Inpt VTE Proph given/why not?: SCD's (Was ambulant) Additional Copies To Wander Harvey III, M.D.
== END 2016-06-15 13:45 | disposition home health service (06) | DRG 189 ==
LOC: ENRESERVDT → ENRESERVTM → C.EDB 01:37 → C.MS2W 04:24
PROVIDERS: ADMIT Internal Medicine; ATTEND Internal Medicine
DX: J96.01 Acute respiratory failure with hypoxia (principal); J44.0 Chronic obstructive pulmonary disease with (acute) lower respiratory infection; J40 Bronchitis, not specified as acute or chronic; M19.91 Primary osteoarthritis, unspecified site; Z86.711 Personal history of pulmonary embolism; Z85.51 Personal history of malignant neoplasm of bladder; Z79.01 Long term (current) use of anticoagulants; Z92.21 Personal history of antineoplastic chemotherapy; Z86.718 Personal history of other venous thrombosis and embolism

== ENCOUNTER 2022-08-16 10:20 | Inpatient (IN) ==
[2022-08-16] MEDS ORDERED: ALBUT/IPRATROP 3MG/0.5MG NEB 3 ML VIAL NEB STA (11:02)
[2022-08-16] MEDS ORDERED: predniSONE 50 MG TAB PO STA (11:02)
[2022-08-16 11:22] LABS: Immature Granulocytes # (auto) 0.01 K/uL (0.01-0.20); Immature Granulocytes % (auto) 0.2 %; Lymphocytes # (auto) 0.52 K/uL (1.2-3.4); Lymphocytes % (auto) 11.1 %; Mean Corpuscular Hemoglobin 31.3 pg (25.0-34.0); Mean Corpuscular Hgb Conc 34.8 g/dL (32.0-36.0); Mean Platelet Volume 9.9 fL (9.4-12.4); Monocytes # (auto) 0.32 K/uL (0.11-0.59); Monocytes % (auto) 6.8 %; Neutrophils # (auto) 3.84 K/uL (1.40-6.50); Neutrophils % (auto) 81.9 %; Platelet Count 157 K/uL (130-400); RDW Coefficient of Variation 13.6 % (11.5-14.5); RDW Standard Deviation 44.5 fL (36.4-46.3); Red Blood Count 5.11 M/uL (4.70-6.10); White Blood Count 4.69 K/ul (4.8-10.8)
--- NOTE | 2022-08-16 11:27 | XRay Report ---
XR chest 1V portable CLINICAL HISTORY: Chest pain, nonspecific TECHNIQUE: Single frontal radiograph of the chest was obtained. Comparison: Comparison is made to chest radiograph 06/13/2016 FINDINGS: No lines and tubes are seen. The cardiomediastinal silhouette is normal. Peribronchial thickening is seen. No evidence of pleural effusion or pneumothorax. IMPRESSION: Peribronchial thickening is seen compatible with infectious/inflammatory airways disease or viral pne umonia. No xin consolidation is seen. ACT 112: Negative or not required by law. Electronically signed by: Chung Bo M.D. 08/16/2022 11:25 AM
[2022-08-16 11:39] LABS: Albumin Level 3.9 gm/dl (3.4-5.0); Bilirubin Direct 0.4 mg/dl (0-0.2); Bilirubin,Total 1.1 mg/dl (0.2-1.0); Calcium 8.9 mg/dl (8.6-10.3); Magnesium 1.9 mg/dl (1.7-2.4); Potassium 4.1 mmol/L (3.5-5.1)
[2022-08-16] MEDS ORDERED: SODIUM CHLORIDE 0.9% 1000ML 500 ML IV ONE (11:42)
[2022-08-16 11:45] LABS: Creatinine Clr Calc Pharmacy 62.7 ml/min; Est GFR (Non-African American) 66.4 ml/min; INR 3.9 (0.9-1.1); Partial Thromboplastin Ratio 1.6; Prothrombin Time 38.7 Seconds (9.0-12.0); Total Protein 6.9 gm/dl (6.0-8.3)
[2022-08-16 11:54] LABS: Troponin I High Sensitivity 57.8 pg/ml (0-20)
[2022-08-16 12:23] LABS: Base Excess VBG 0.4 mEq/L; HCO3 VBG 27 mmol/L; Oxygen Saturation VBG < 60.0 %; PCO2 VBG 47 mmHg (38-50); PO2 VBG 29 mmHg; pH VBG 7.36 (7.36-7.41)
[2022-08-16 12:26] LABS: Influenza A virus by PCR Negative (Neg); Influenza B virus by PCR Negative (Neg); RSV by PCR Negative (Neg); SARS CoV2 RNA(COVID-19) Ceph NEGATIVE (Negative)
[2022-08-16] MEDS ORDERED: FUROSEMIDE 40 MG/4 ML VIAL IV ONE (13:07)
--- NOTE | 2022-08-16 13:25 | History & Physical Report ---
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 In ER oxygen sats dropped to 84% on room air with ambulation WBC: 4.7, procalcitonin: 0.05, BNP: 304 Negative SARS-CoV-2, RSV and influenza PCR Respiratory panel: + human metapneumovirus CXR: Peribronchial thickening is seen compatible with infectious/inflammatory airways disease or viral pneumonia. No xin consolidation is seen. Viral respiratory infection causing COPD exacerbation. Does not at appear volume overloaded In ER given 500 mL NSS, Lasix 40 mg IV, prednisone 50 mg p.o., albuterol neb Supplemental oxygen as needed, wean as able Xopenex, Atrovent nebs Solu-Medrol Doxycycline Continue home Breo CBC in a.m. (3) Atrial fibrillation with RVR: Plan: Was found to be in new onset atrial fibrillation on EKG today. Heart rates low 100s - 120s in ER No significant electrolyte abnormality TSH pending Suspect respiratory infection causing new onset a-fib Monitor on telemetry Start metoprolol tartrate 25 mg 3 times daily Patient already anticoagulated on warfarin Echo Cardiology consult BMP, magnesium level in a.m. 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 to further adjust (8) Bladder CA in situ: Plan: History of bladder CA s/p treatment DVT Prophylaxis Anticoagulated on warfarin, INR supratherapeutic DNR/DNI as per discussion with pt Follows with Dr Harvey for routine care Pt was seen and care coordinated with Dr Belcher. See addendum I spent a total of 77 minutes reviewing notes, outpatient records, labs, medication, coordinating, documenting and providing care for this patient excluding time spent in the performance of separately billed services. 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 Patient states 3 days ago started with congestion, cough, shortness of breath, wheezing. Past 2 days has used his albuterol inhaler 4 times a day with limited relief of wheezing. Shortness of breath aggravated with exertion. Denies chest pain. Reports cough is productive however he does not expel sputum so is unsure of color. Has not taken his temperature at home but has been feeling chills the past 3 days. Reports decreased appetite. Has been having "gurgling" in his abdomen. Had loose bowel movement this morning prior to arrival. Denies abdominal pain or vomiting. Denies using OTC cold medications. He has also been feeling weak. At baseline ambulates with walker however has needed assistance ambulating with walker today. Denies falls. Denies known ill contacts however reports attends [employer] service that people were coughing around him. Went to [facility] urgent care clinic this morning as he was concerned he may have COVID. There he was found to be in new onset atrial fibrillation and hypoxic and was sent to ER. Denies GARCIA, dizziness, syncope, vision changes, neck pain, CP, palpitations, hemoptysis, sore throat, choking, otalgia, paresthesias, extremity edema, rashes, urinary symptoms. Allergies Allergy/AdvReac Type Severity Reaction Status Date / Time NSAIDS (Non-Steroidal Allergy Severe WHEEZING Verified 08/16/22 14:51 Anti-Inflamma Home Medications Medication Instructions Recorded Confirmed Type albuterol sulfate 90 mcg/actuation 2 puff inhalation Q4H PRN 08/16/22 08/16/22 History aerosol inhaler (Ventolin HFA) Shortness Of Breath Or Wheezing cholecalciferol (vitamin D3) 10 0 mcg PO QAM 08/16/22 08/16/22 History mcg (400 unit) tablet (Vitamin D3) fluticasone furoate 100 1 inh inhalation DAILY 08/16/22 08/16/22 History mcg-vilanterol 25 mcg/dose inhalation powder (Breo Ellipta) furosemide 20 mg tablet 20 mg PO DAILY PRN Edema 08/16/22 08/16/22 History melatonin 5 mg tablet 5 mg PO HS 08/16/22 08/16/22 History prednisone 5 mg tablets in a dose 5 mg PO DIRECTED 08/16/22 08/16/22 History pack warfarin 5 mg tablet 2.5 mg PO UD 08/16/22 08/16/22 History warfarin 5 mg tablet 5 mg PO UD 08/16/22 08/16/22 History Past Med/Surg History Medical History Anticoagulated on Coumadin (11/06/13) Asthma Basal cell carcinoma Bladder CA in situ COPD (chronic obstructive pulmonary disease) DVT (deep venous thrombosis) Dyslipidemia Pulmonary embolism Surgical History H/O arthroscopic knee surgery H/O cystoscopy "with fulguration of bladder tumor" History of appendectomy History of total hip replacement S/P cataract surgery S/P cholecystectomy (11/06/13) S/P tonsillectomy and adenoidectomy Family History Father Heart disease Social History Smoking Status: Never smoker Hx Alcohol Use: Yes Hx Substance Use: No Preferred Language: Khmer Communication Ability: Effective 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 Beliefs That Will Affect Care: None Current Living Situation: Spouse Other Information That Helps Us Care for You: No Feels Safe at Home: Yes Safety Concerns: Feels Safe At This Time Assistive Devices: Walker Review of Systems Review of Systems: All systems reviewed & are unremarkable except as noted in HPI & below Physical Exam Physical Exam: General: no acute distress, WDWN Head: normocephalic, atraumatic Eyes: conjunctiva non-injected, anicteric ENT: normal inspection external ears, nose, mucous membranes moist Neck: supple, trachea midline Lungs: no respiratory distress on current 2 L via nasal cannula, sats 95%, + diffuse wheezing throughout, no rhonchi/rales CV: Irregularly irregular, rate 120, no pitting edema Abd: normal BS, soft, non-tender Ext: no calf tenderness, + brown, erythematous, dry chronic skin changes to bilateral lower extremities Neuro: A&O x 3, no focal deficits noted, normal affect Skin: warm, dry Results & Data Results & Data Vital Signs (Past 12 Hours) Vital Signs Temp Pulse Pulse Resp BP BP Pulse Ox 08/16/22 13:00 118 H 17 92 08/16/22 12:50 132 H 25 H 94 08/16/22 12:40 115 H 24 94 08/16/22 12:30 132 H 19 84 L 08/16/22 12:20 122 H 19 92 08/16/22 12:10 127 H 19 92 08/16/22 12:00 114 H 21 92 08/16/22 12:00 131/94 08/16/22 11:50 107 H 25 H 97 08/16/22 11:40 116 H 14 98 08/16/22 11:30 108 H 20 91 08/16/22 11:30 136/89 08/16/22 11:20 105 H 16 90 08/16/22 11:10 105 H 21 93 08/16/22 11:00 115 H 16 90 08/16/22 11:00 131/94 08/16/22 10:50 115 H 17 92 08/16/22 10:40 117 H 18 92 08/16/22 10:34 115 H 20 96 08/16/22 11:03 08/16/22 10:50 113 H 08/16/22 10:29 08/16/22 10:29 112 H 26 H 147/96 H 92 08/16/22 10:29 36.6 C 115 H 29 H 147/96 H 94 O2 Del Method O2 Flow Rate 08/16/22 13:00 08/16/22 12:50 08/16/22 12:40 Nasal Cannula 2 08/16/22 12:30 08/16/22 12:20 08/16/22 12:10 08/16/22 12:00 08/16/22 12:00 08/16/22 11:50 08/16/22 11:40 08/16/22 11:30 08/16/22 11:30 08/16/22 11:20 08/16/22 11:10 08/16/22 11:00 08/16/22 11:00 08/16/22 10:50 08/16/22 10:40 08/16/22 10:34 08/16/22 11:03 Room Air 08/16/22 10:50 08/16/22 10:29 Room Air 08/16/22 10:29 Room Air 08/16/22 10:29 Room Air Laboratory Results Short CBC 08/16/22 Range/Units 10:29 WBC 4.69 L (4.8-10.8) K/ul Hgb 16.0 (14.0-18.0) g/dl Hct 46.0 (42.0-52.0) % Plt Count 157 (130-400) K/uL BMP 08/16/22 10:29 Sodium 135 L Potassium 4.1 Chloride 102 Carbon Dioxide 22 BUN 20 Creatinine 1.00 Glucose 124 H Calcium 8.9 Liver Function 08/16/22 Range/Units 10:29 Total Bilirubin 1.1 H (0.2-1.0) mg/dl Direct Bilirubin 0.4 H (0-0.2) mg/dl AST 27 (13-39) U/L ALT 13 (7-52) U/L Alkaline Phosphatase 79 (34-104) U/L Albumin 3.9 (3.4-5.0) gm/dl Diagnostic Findings Chest X-Ray 08/16/22 11:03 XR chest 1V portable CLINICAL HISTORY: Chest pain, nonspecific TECHNIQUE: Single frontal radiograph of the chest was obtained. Comparison: Comparison is made to chest radiograph 06/13/2016 FINDINGS: No lines and tubes are seen. The cardiomediastinal silhouette is normal. Peribronchial thickening is seen. No evidence of pleural effusion or pneumothorax. IMPRESSION: Peribronchial thickening is seen compatible with infectious/inflammatory airways disease or viral pneumonia. No xin consolidation is seen. ACT 112: Negative or not required by law. Electronically signed by: Chung Bo M.D. 08/16/2022 11:25 AM Supervising Physician Co-Signing Physician Notes Care coordinated with Sayda Yanez PA-C. Agree with above note. Patient seen and examined. Please refer to her notes for full details. Vital signs reviewed. Physical exam: General exam: Alert and oriented. Not in acute distress. CVS: S1 and S2 heard, regular rate and rhythm, no murmurs. RS: Clear to auscultation,b/l wheezing and rhonchi heard ABD: Soft, bowel sounds present, nontender, no distention. GROUP HOME MANAGER: Nonfocal. EXT: No edema, no erythema. Labs: Reviewed. Assessment and plan: 89M presents with couple of days of cough and sob. Thought of viral infection went to urgent care found to be in a fib and hypoxic and was sent to ER Sob. 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 BCG maintenance not done as patient felt induction course triggered asthma Other diagnosis and plan of care as per Sayda Yanez PA-C. Jayme enamorado MD.
--- NOTE | 2022-08-16 13:47 | Emergency Department Note ---
History of Present Illness General Chief complaint: Cardiac Assessment Stated complaint: SOB and cough for last 3 days. Time Seen by Provider: 08/16/22 10:53 History of Present Illness Provider complaint: Shortness of breath and cough Onset (ago): day(s) 3 89-year-old male presents emergency department for shortness of breath and cough. Patient reports that for the last 3 days he has been increasingly weak not eating or drinking and has been having some diarrhea. He reports he has been having cough. No hemoptysis. He states he reports congestion. He reports he is having productive cough. He also for shortness of breath and wheezing. Patient reports history of asthma. No chest pain or fevers. Patient states he went to the [facility] urgent care clinic today for COVID test and they found him to be in A-fib and he was referred to the emergency department. Patient is on Coumadin. No recent falls or traumas. No hematochezia or melena. Home Medications Medication Instructions Recorded Confirmed Type WARFARIN SODIUM (COUMADIN) 5 mg PO DAILY #0 tabs 06/13/16 History Albuterol (Ventolin Hfa) 2 puff inhalation Q6HWA PRN 06/15/16 Rx Wheezing ##1 HOME O2 THERAPY (Oxygen) 2 liters NA PRN ##1 06/15/16 Rx Allergies Allergy/AdvReac Type Severity Reaction Status Date / Time NSAIDS (Non-Steroidal Allergy Severe WHEEZING Verified 07/08/16 10:01 Anti-Inflamma Past Med/Surg History Medical History Anticoagulated on Coumadin (11/06/13) Bladder CA in situ DVT (deep venous thrombosis) Dyslipidemia Pulmonary embolism Surgical History S/P cataract surgery S/P cholecystectomy (11/06/13) S/P tonsillectomy and adenoidectomy Social History Smoking Status: Never smoker Feels Safe at Home: Yes Physical Exam Vital Signs Vital Signs - 24 hr 08/16/22 10:29 08/16/22 10:29 08/16/22 10:29 Temperature 36.6 C Temperature Source Oral Pulse Rate 115 H Pulse Rate [Apical] 112 H Pulse Rate from SpO2 Sensor Pulse Rhythm Irregular Pulse Rhythm [Apical] Regular Pulse Strength Normal Pulse Strength [Apical] Normal Respiratory Rate 29 H 26 H Respiratory Effort / Characteristics Labored Labored Labored Respiratory Depth Shallow Shallow Respiratory Pattern Tachypnea Tachypnea Blood Pressure 147/96 H Blood Pressure [Right Arm] 147/96 H Blood Pressure Mean 113 Blood Pressure Mean [Right Arm] 113 Pulse Oximetry 94 92 Oxygen Delivery Method Room Air Room Air Room Air Oxygen Flow Rate Sepsis Recent Fever Within 48 Hours No Sepsis New/Unexplained Change in Mental Status N/A Sepsis Action Taken by Nursing Physician Notified 08/16/22 10:50 08/16/22 11:03 08/16/22 10:34 Temperature Temperature Source Pulse Rate 113 H 115 H Pulse Rate [Apical] Pulse Rate from SpO2 Sensor 120 H Pulse Rhythm Pulse Rhythm [Apical] Pulse Strength Pulse Strength [Apical] Respiratory Rate 20 Respiratory Effort / Characteristics Respiratory Depth Respiratory Pattern Blood Pressure Blood Pressure [Right Arm] Blood Pressure Mean Blood Pressure Mean [Right Arm] Pulse Oximetry 96 Oxygen Delivery Method Room Air Oxygen Flow Rate Sepsis Recent Fever Within 48 Hours Sepsis New/Unexplained Change in Mental Status Sepsis Action Taken by Nursing 08/16/22 10:40 08/16/22 10:50 08/16/22 11:00 Temperature Temperature Source Pulse Rate 117 H 115 H Pulse Rate [Apical] Pulse Rate from SpO2 Sensor 117 H 116 H Pulse Rhythm Pulse Rhythm [Apical] Pulse Strength Pulse Strength [Apical] Respiratory Rate 18 17 Respiratory Effort / Characteristics Respiratory Depth Respiratory Pattern Blood Pressure 131/94 Blood Pressure [Right Arm] Blood Pressure Mean 106 Blood Pressure Mean [Right Arm] Pulse Oximetry 92 92 Oxygen Delivery Method Oxygen Flow Rate Sepsis Recent Fever Within 48 Hours Sepsis New/Unexplained Change in Mental Status Sepsis Action Taken by Nursing 08/16/22 11:00 08/16/22 11:10 08/16/22 11:20 Temperature Temperature Source Pulse Rate 115 H 105 H 105 H Pulse Rate [Apical] Pulse Rate from SpO2 Sensor 121 H 112 H 106 H Pulse Rhythm Pulse Rhythm [Apical] Pulse Strength Pulse Strength [Apical] Respiratory Rate 16 21 16 Respiratory Effort / Characteristics Respiratory Depth Respiratory Pattern Blood Pressure Blood Pressure [Right Arm] Blood Pressure Mean Blood Pressure Mean [Right Arm] Pulse Oximetry 90 93 90 Oxygen Delivery Method Oxygen Flow Rate Sepsis Recent Fever Within 48 Hours Sepsis New/Unexplained Change in Mental Status Sepsis Action Taken by Nursing 08/16/22 11:30 08/16/22 11:30 08/16/22 11:40 Temperature Temperature Source Pulse Rate 108 H 116 H Pulse Rate [Apical] Pulse Rate from SpO2 Sensor 114 H 117 H Pulse Rhythm Pulse Rhythm [Apical] Pulse Strength Pulse Strength [Apical] Respiratory Rate 20 14 Respiratory Effort / Characteristics Respiratory Depth Respiratory Pattern Blood Pressure 136/89 Blood Pressure [Right Arm] Blood Pressure Mean 104 Blood Pressure Mean [Right Arm] Pulse Oximetry 91 98 Oxygen Delivery Method Oxygen Flow Rate Sepsis Recent Fever Within 48 Hours Sepsis New/Unexplained Change in Mental Status Sepsis Action Taken by Nursing 08/16/22 11:50 08/16/22 12:00 08/16/22 12:00 Temperature Temperature Source Pulse Rate 107 H 114 H Pulse Rate [Apical] Pulse Rate from SpO2 Sensor 113 H 114 H Pulse Rhythm Pulse Rhythm [Apical] Pulse Strength Pulse Strength [Apical] Respiratory Rate 25 H 21 Respiratory Effort / Characteristics Respiratory Depth Respiratory Pattern Blood Pressure 131/94 Blood Pressure [Right Arm] Blood Pressure Mean 106 Blood Pressure Mean [Right Arm] Pulse Oximetry 97 92 Oxygen Delivery Method Oxygen Flow Rate Sepsis Recent Fever Within 48 Hours Sepsis New/Unexplained Change in Mental Status Sepsis Action Taken by Nursing 08/16/22 12:10 08/16/22 12:20 08/16/22 12:30 Temperature Temperature Source Pulse Rate 127 H 122 H 132 H Pulse Rate [Apical] Pulse Rate from SpO2 Sensor 125 H 117 H 131 H Pulse Rhythm Pulse Rhythm [Apical] Pulse Strength Pulse Strength [Apical] Respiratory Rate 19 19 19 Respiratory Effort / Characteristics Respiratory Depth Respiratory Pattern Blood Pressure Blood Pressure [Right Arm] Blood Pressure Mean Blood Pressure Mean [Right Arm] Pulse Oximetry 92 92 84 L Oxygen Delivery Method Oxygen Flow Rate Sepsis Recent Fever Within 48 Hours Sepsis New/Unexplained Change in Mental Status Sepsis Action Taken by Nursing 08/16/22 12:40 08/16/22 12:50 08/16/22 13:00 Temperature Temperature Source Pulse Rate 115 H 132 H 118 H Pulse Rate [Apical] Pulse Rate from SpO2 Sensor 126 H 134 H 122 H Pulse Rhythm Pulse Rhythm [Apical] Pulse Strength Pulse Strength [Apical] Respiratory Rate 24 25 H 17 Respiratory Effort / Characteristics Respiratory Depth Respiratory Pattern Blood Pressure Blood Pressure [Right Arm] Blood Pressure Mean Blood Pressure Mean [Right Arm] Pulse Oximetry 94 94 92 Oxygen Delivery Method Nasal Cannula Oxygen Flow Rate 2 Sepsis Recent Fever Within 48 Hours Sepsis New/Unexplained Change in Mental Status Sepsis Action Taken by Nursing Physical Exam GENERAL: He is oriented to person, place, and time. He appears well-developed and well-nourished. He does not appear distressed. HENT: Exam performed. - Head: Normocephalic and atraumatic. - Right Ear: External ear normal. No mastoid erythema - Left Ear: External ear normal. No mastoid erythema EYES: Conjunctivae and EOM are normal. Pupils are equal, round, and reactive to light. Right eye exhibits no discharge. Left eye exhibits no discharge. No scleral icterus. NECK: Normal range of motion. Neck supple. No JVD present. No spinous process tenderness present. No tracheal deviation and normal range of motion present. CV: Normal rate, irregular rhythm, normal heart sounds and intact distal pulses. There is no peripheral edema. Palpable radial pulses bue. PULM/CHEST: Wheezes bilaterally. ABD: The abdomen is soft. He has no distension. There is no tenderness. There is no rebound, no guarding. LYMPH: No cervical adenopathy. NEURO: Motor and sensation grossly intact. SKIN: Skin is warm and dry. He is not diaphoretic. PSYCH: He has a normal mood and affect. Behavior is normal. Judgment and thought content normal. Course Course 1053: The patient was evaluated in room B10. A complete history and physical exam was performed Cardiac monitoring: An order was placed for continuous cardiac monitoring. The monitor shows a rate of 110-120 with atrial fibrilation rhythm interpreted by me 1315: Patient became hypoxic upon ambulating to the restroom. Supplemental oxygen was applied which improved the patient's oxygen saturation. Patient remains in atrial fibrillation rhythm which is new for the patient. His ventricular rate is controlled. Labs show white blood cell count 4.69 INR is 3.9. VBG is within normal limits. High-sensitivity troponin mildly elevated 57.8 proBNP elevated at 304. COVID influenza and RSV negative. Formal chest x- ray reading states there is peribronchial thickening compatible with infectious/inflammatory airway or viral pneumonia. No focal elevation. I viewed the chest x-ray myself I thought the patient was having more cardiomegaly with cephalization. Given this and the patient's hypoxia as well as elevated BNP Lasix ordered for the patient. [facility] who stated to admit to Dr. Belcher Administered Medications Discontinued Medications Albuterol (Albut/Ipratrop 3mg/0.5mg Neb 3 Ml Vial) 3 ml NEB NOW STA; Protocol Stop: 08/16/22 11:03 Last Admin: 08/16/22 11:33 Dose: 3 ml Documented By: JOANNE Sodium Chloride (Nss 1000ml) 500 mls @ 999 mls/hr IV .Q31M ONE Stop: 08/16/22 12:12 Last Infusion: 08/16/22 12:24 Dose: 0 mls/hr Documented By: Admin: 08/16/22 12:01 Dose: 999 mls/hr Documented By: JOANNE Prednisone (Prednisone 50 Mg Tab) 50 mg PO NOW STA Stop: 08/16/22 11:03 Last Admin: 08/16/22 11:33 Dose: 50 mg Documented By: JOANNE Critical Care Time Critical Care Time: Yes Total Critical Care Time: 40 I have personally spent greater than 40 minutes of critical care time in the direct management of this patient. This includes bedside care, interpretation of diagnostic studies, and testing, discussion with consultants, patient, and family members, and other required patient management activities. This 40 minutes is in excess of all separately billable procedures. Medical Decision Making Laboratory Data Attestation: I reviewed the patient's lab results. 08/16/22 10:29 08/16/22 10:29 Lab Results 08/16/22 08/16/22 08/16/22 Range/Units 10:29 10:29 10:29 WBC 4.69 L (4.8-10.8) K/ul RBC 5.11 (4.70-6.10) M/uL Hgb 16.0 (14.0-18.0) g/dl Hct 46.0 (42.0-52.0) % MCV 90.0 (80.0-100.0) fL MCH 31.3 (25.0-34.0) pg MCHC 34.8 (32.0-36.0) g/dL RDW Std Deviation 44.5 (36.4-46.3) fL RDW Coeff of Viktoria 13.6 (11.5-14.5) % Plt Count 157 (130-400) K/uL MPV 9.9 (9.4-12.4) fL Immature Gran % (Auto) 0.2 % Neut % (Auto) 81.9 % Lymph % (Auto) 11.1 % [place] % (Auto) 6.8 % Eos % (Auto) 0.0 % Baso % (Auto) 0.0 % Neut # (Auto) 3.84 (1.40-6.50) K/uL Lymph # (Auto) 0.52 L (1.2-3.4) K/uL [place] # (Auto) 0.32 (0.11-0.59) K/uL Eos # (Auto) 0.00 (0-0.50) K/uL Baso # (Auto) 0.00 (0-0.2) K/uL Immature Gran # (Auto) 0.01 (0.01-0.20) K/uL PT 38.7 H (9.0-12.0) Seconds INR 3.9 H (0.9-1.1) APTT 45.0 H (21.0-31.0) Seconds PTT Ratio 1.6 VBG pH (7.36-7.41) VBG pCO2 (38-50) mmHg VBG pO2 mmHg VBG HCO3 mmol/L VBG O2 Saturation % VBG Base Excess mEq/L Sodium 135 L (136-145) mmol/L Potassium 4.1 (3.5-5.1) mmol/L Chloride 102 (98-107) mmol/L Carbon Dioxide 22 (21-32) mmol/L Anion Gap 11 (3-11) BUN 20 (6-23) mg/dl Creatinine 1.00 (0.6-1.4) mg/dl Est Cr Clr Drug Dosing 62.7 ml/min Est GFR ( Amer) 77.0 ml/min Est GFR (Non-Af Amer) 66.4 ml/min BUN/Creatinine Ratio 20.0 (10-20) Glucose 124 H (70-99(Fasting)) mg/dl Calcium 8.9 (8.6-10.3) mg/dl Magnesium 1.9 (1.7-2.4) mg/dl Total Bilirubin 1.1 H (0.2-1.0) mg/dl Direct Bilirubin 0.4 H (0-0.2) mg/dl AST 27 (13-39) U/L ALT 13 (7-52) U/L Alkaline Phosphatase 79 (34-104) U/L Troponin I High Sens 57.8 H* (0-20) pg/ml B-Natriuretic Peptide (0-100) pg/ml Total Protein 6.9 (6.0-8.3) gm/dl Albumin 3.9 (3.4-5.0) gm/dl Lipase 6 L (11-82) U/L SARS-CoV-2 (PCR) (Negative) Influenza Type A (PCR) (Neg) Influenza Type B (PCR) (Neg) RSV (RT-PCR) (Neg) 08/16/22 08/16/22 08/16/22 Range/Units 11:22 12:00 12:00 WBC (4.8-10.8) K/ul RBC (4.70-6.10) M/uL Hgb (14.0-18.0) g/dl Hct (42.0-52.0) % MCV (80.0-100.0) fL MCH (25.0-34.0) pg MCHC (32.0-36.0) g/dL RDW Std Deviation (36.4-46.3) fL RDW Coeff of Viktoria (11.5-14.5) % Plt Count (130-400) K/uL MPV (9.4-12.4) fL Immature Gran % (Auto) % Neut % (Auto) % Lymph % (Auto) % [place] % (Auto) % Eos % (Auto) % Baso % (Auto) % Neut # (Auto) (1.40-6.50) K/uL Lymph # (Auto) (1.2-3.4) K/uL [place] # (Auto) (0.11-0.59) K/uL Eos # (Auto) (0-0.50) K/uL Baso # (Auto) (0-0.2) K/uL Immature Gran # (Auto) (0.01-0.20) K/uL PT (9.0-12.0) Seconds INR (0.9-1.1) APTT (21.0-31.0) Seconds PTT Ratio VBG pH 7.36 (7.36-7.41) VBG pCO2 47 (38-50) mmHg VBG pO2 29 mmHg VBG HCO3 27 mmol/L VBG O2 Saturation < 60.0 % VBG Base Excess 0.4 mEq/L Sodium (136-145) mmol/L Potassium (3.5-5.1) mmol/L Chloride (98-107) mmol/L Carbon Dioxide (21-32) mmol/L Anion Gap (3-11) BUN (6-23) mg/dl Creatinine (0.6-1.4) mg/dl Est Cr Clr Drug Dosing ml/min Est GFR ( Amer) ml/min Est GFR (Non-Af Amer) ml/min BUN/Creatinine Ratio (10-20) Glucose (70-99(Fasting)) mg/dl Calcium (8.6-10.3) mg/dl Magnesium (1.7-2.4) mg/dl Total Bilirubin (0.2-1.0) mg/dl Direct Bilirubin (0-0.2) mg/dl AST (13-39) U/L ALT (7-52) U/L Alkaline Phosphatase (34-104) U/L Troponin I High Sens (0-20) pg/ml B-Natriuretic Peptide 304 H (0-100) pg/ml Total Protein (6.0-8.3) gm/dl Albumin (3.4-5.0) gm/dl Lipase (11-82) U/L SARS-CoV-2 (PCR) NEGATIVE (Negative) Influenza Type A (PCR) Negative (Neg) Influenza Type B (PCR) Negative (Neg) RSV (RT-PCR) Negative (Neg) Imaging Data Attestation: I personally reviewed and interpreted this imaging study as follows: My Impression: Chest x-ray: Cardiomegaly with mild cephalization. Radiologist's Impression: Chest X-Ray 08/16/22 11:03 XR chest 1V portable CLINICAL HISTORY: Chest pain, nonspecific TECHNIQUE: Single frontal radiograph of the chest was obtained. Comparison: Comparison is made to chest radiograph 06/13/2016 FINDINGS: No lines and tubes are seen. The cardiomediastinal silhouette is normal. Peribronchial thickening is seen. No evidence of pleural effusion or pneumothorax. IMPRESSION: Peribronchial thickening is seen compatible with infectious/inflammatory airways disease or viral pneumonia. No xin consolidation is seen. ACT 112: Negative or not required by law. Electronically signed by: Chung Bo M.D. 08/16/2022 11:25 AM ECG Data Attestation: I personally reviewed and interpreted this ECG as follows: Additional Comments: EKG #1 at 1024: Atrial fibrillation with rate of 110. QRS [address] elevation or ST depression. PVCs present. EKG #2 at 1119: Atrial fibrillation with a rate of 107. QRS [address] elevation or ST depression. PVCs present. [facility] Narrative 1053: The patient was evaluated in room B10. A complete history and physical exam was performed Cardiac monitoring: An order was placed for continuous cardiac monitoring. The monitor shows a rate of 110-120 with atrial fibrilation rhythm interpreted by me 1315: Patient became hypoxic upon ambulating to the restroom. Supplemental oxygen was applied which improved the patient's oxygen saturation. Patient remains in atrial fibrillation rhythm which is new for the patient. His ventricular rate is controlled. Labs show white blood cell count 4.69 INR is 3.9. VBG is within normal limits. High-sensitivity troponin mildly elevated 57.8 proBNP elevated at 304. COVID influenza and RSV negative. Formal chest x- ray reading states there is peribronchial thickening compatible with infectious/inflammatory airway or viral pneumonia. No focal elevation. I viewed the chest x-ray myself I thought the patient was having more cardiomegaly with cephalization. Given this and the patient's hypoxia as well as elevated BNP Lasix ordered for the patient. [facility] who stated to admit to Dr. Belcher Impression & Plan Hypoxia, Atrial fibrillation Discharge Plan Visit Data Chief Complaint: Cardiac Assessment Stated Complaint: SOB and cough for last 3 days. ED Provider: Bertin Bueno Discharge Problem: Hypoxia, Atrial fibrillation Patient Disposition: Admitted As Inpatient Forms Stand Alone Forms: My [facility] Prescriptions Prescriptions: No Action WARFARIN SODIUM (COUMADIN) 5 MG tablet 5 mg PO DAILY Qty: 0 Albuterol (Ventolin Hfa) 60 PUFFS/5,400 MCG AEROSOL,SOLN 2 puff Inhalation Q6HWA PRN (Reason: Wheezing) Qty: 1 0RF HOME O2 THERAPY (Oxygen) gas 2 liters NA PRN Qty: 1 0RF Referrals Referrals: Wander Harvey MD [Primary Care Provider] -
--- NOTE | 2022-08-16 13:48 | Electrocardiogram Report ---
Test Reason : Blood Pressure : / mmHG Vent. Rate : 110 BPM Atrial Rate : 250 BPM P-R Int : 000 ms QRS Dur : 082 ms QT Int : 360 ms P-R-T Axes : 000 -49 043 degrees QTc Int : 487 ms Poor data quality, interpretation may be adversely affected Sinus tachycardia Left axis deviation Inferior infarct , age undetermined Abnormal ECG When compared with ECG of 13-JUN-2016 02:01, QRS axis Shifted left Inferior infarct is now Present ST now depressed in Inferior leads Nonspecific T wave abnormality has replaced inverted T waves in Inferior leads Confirmed by Ramón Berg ([id number]) on 08/16/2022 1:48:29 PM Referred By: REFERRED SELF Confirmed By:Ramón Berg
--- NOTE | 2022-08-16 13:51 | Electrocardiogram Report ---
Test Reason : Blood Pressure : / mmHG Vent. Rate : 107 BPM Atrial Rate : 107 BPM P-R Int : 000 ms QRS Dur : 090 ms QT Int : 374 ms P-R-T Axes : 000 -40 083 degrees QTc Int : 499 ms Poor data quality, interpretation may be adversely affected Atrial fibrillation with rapid ventricular response with premature ventricular or aberrantly conducte d complexes Left axis deviation Abnormal ECG When compared with ECG of 16-AUG-2022 10:24, (unconfirmed) Atrial fibrillation now present Confirmed by Ramón Berg ([id number]) on 08/16/2022 1:51:19 PM Referred By: REFERRED SELF Confirmed By:Ramón Berg
[2022-08-16] MEDS ORDERED: METOPROLOL TARTRATE 1 MG/ML VIAL IV STA (14:02)
[2022-08-16] MEDS ORDERED: ACETAMINOPHEN 325 MG TAB PO PRN (14:03)
[2022-08-16] MEDS ORDERED: ONDANSETRON INJ 2 MG/ML 2 ML VIAL IV PRN (14:03)
[2022-08-16] MEDS ORDERED: POLYETHYLENE (MIRALAX) 17 GM PACK PO PRN (14:03)
[2022-08-16] MEDS ORDERED: METOPROLOL TARTRATE 25 MG TAB PO ONE (14:23)
[2022-08-16] MEDS ORDERED: methylPREDNISolone 40 MG in SYRINGE 0 ML IV SCH (14:30)
[2022-08-16] MEDS: DOXYCYCLINE HYCLATE 100 MG in DEXTROSE 5% 100 ML IV SCH (15:08)
[2022-08-16] MEDS: methylPREDNISolone 40 MG in SYRINGE 0 ML IV SCH ×2 (15:08→22:09)
[2022-08-16 16:50] LABS: Adenovirus PCR Not Detected (NotDetected); Bordetella parapertussis PCR Not Detected (NotDetected); Bordetella pertussis PCR Not Detected (NotDetected); Chlamydia pneumoniae PCR Not Detected (NotDetected); Coronavirus 229E PCR Not Detected (NotDetected); Coronavirus CoV-2 (COVID19)PCR Not Detected (NotDetected); Coronavirus HKU1 PCR Not Detected (NotDetected); Coronavirus NL63 PCR Not Detected (NotDetected); Coronavirus OC43PCR Not Detected (NotDetected); Influenza A PCR Not Detected (NotDetected); Influenza B PCR Not Detected (NotDetected); Mycoplasma pneumoniae PCR Not Detected (NotDetected); Parainfluenza Virus 1 PCR Not Detected (NotDetected); Parainfluenza Virus 2 PCR Not Detected (NotDetected); Parainfluenza Virus 3 PCR Not Detected (NotDetected); Parainfluenza Virus 4 PCR Not Detected (NotDetected); Respiratory Syncytial VirusPCR Not Detected (NotDetected); Rhinovirus/Enterovirus PCR Not Detected (NotDetected)
[2022-08-16 16:57] LABS: Human Metapneumovirus PCR DETECTED (NotDetected)
[2022-08-16] MEDS ORDERED: XOPENEX/ATROVENT 1.25mg/0.5MG NEB COMBO NEB SCH (19:00)
[2022-08-16] MEDS: LEVALBUTEROL 1.25MG/0.5ML NEB INH SCH ×2 (19:12→23:10)
[2022-08-16] MEDS: IPRATROPIUM BROMIDE NEB SOLN 0.02% 2.5 ML VIAL INH SCH ×2 (19:12→23:10)
[2022-08-16] MEDS: MELATONIN 3 MG TAB PO SCH (22:07)
[2022-08-16] MEDS: METOPROLOL TARTRATE 25 MG TAB PO SCH (22:08)
[2022-08-17 02:15] LABS: Hematocrit (blood only) 43.2 % (42.0-52.0); Hemoglobin 15.1 g/dl (14.0-18.0); Mean Corpuscular Hemoglobin 31.8 pg (25.0-34.0); Mean Corpuscular Volume 90.9 fL (80.0-100.0); Mean Platelet Volume 9.8 fL (9.4-12.4); Platelet Count 156 K/uL (130-400); RDW Coefficient of Variation 13.7 % (11.5-14.5); RDW Standard Deviation 46.1 fL (36.4-46.3); Red Blood Count 4.75 M/uL (4.70-6.10); White Blood Count 3.77 K/ul (4.8-10.8)
[2022-08-17 02:38] LABS: BUN Creatinine Ratio 23.9 (10-20); Calcium 8.5 mg/dl (8.6-10.3); Creatinine Clr Calc Pharmacy 57.5 ml/min; Est GFR (African American) 69.4 ml/min; Est GFR (Non-African American) 59.9 ml/min; Potassium 4.6 mmol/L (3.5-5.1)
[2022-08-17 02:43] LABS: Prothrombin Time 56.2 Seconds (9.0-12.0)
[2022-08-17 02:52] LABS: INR 5.8 (0.9-1.1)
[2022-08-17] MEDS ORDERED: PHYTONADIONE 5 MG TAB PO STA (02:58)
[2022-08-17] MEDS: DOXYCYCLINE HYCLATE 100 MG in DEXTROSE 5% 100 ML IV SCH ×2 (03:25→15:53)
[2022-08-17] MEDS: IPRATROPIUM BROMIDE NEB SOLN 0.02% 2.5 ML VIAL INH SCH ×4 (08:15→20:28)
[2022-08-17] MEDS: LEVALBUTEROL 1.25MG/0.5ML NEB INH SCH ×4 (08:16→20:28)
[2022-08-17] MEDS: METOPROLOL TARTRATE 25 MG TAB PO SCH ×3 (08:30→20:56)
[2022-08-17] MEDS: methylPREDNISolone 40 MG in SYRINGE 0 ML IV SCH ×3 (08:30→22:23)
[2022-08-17] MEDS: FLUTICASONE/VILANTEROL 100/25MCG 14 PUFFS/INHALER INH SCH (08:32)
[2022-08-17] MEDS: SODIUM CHLOR 7% 4 ML NEB NEB SCH ×2 (08:43→20:28)
--- NOTE | 2022-08-17 09:15 | Hospitalist Progress Note ---
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 In ER oxygen sats dropped to 84% on room air with ambulation WBC: 4.7, procalcitonin: 0.05, BNP: 304 Negative SARS-CoV-2, RSV and influenza PCR Respiratory panel: + human metapneumovirus CXR: Peribronchial thickening is seen compatible with infectious/inflammatory airways disease or viral pneumonia. No xin consolidation is seen. Viral respiratory infection causing COPD exacerbation. Does not at appear volume overloaded In ER given 500 mL NSS, Lasix 40 mg IV, prednisone 50 mg p.o., albuterol neb Supplemental oxygen as needed, wean as able Xopenex, Atrovent nebs Solu-Medrol Doxycycline Continue home Breo CBC in a.m. possible Human metapneumovirus pneumonia (3) Atrial fibrillation with RVR: Plan: Was found to be in new onset atrial fibrillation on EKG today. Heart rates low 100s - 120s in ER No significant electrolyte abnormality TSH pending Suspect respiratory infection causing new onset a-fib Monitor on telemetry Start metoprolol tartrate 25 mg 3 times daily Patient already anticoagulated on warfarin Echo Cardiology consult BMP, magnesium level in a.m. 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 to further adjust (8) Bladder CA in situ: Plan: History of bladder CA s/p treatment DVT Prophylaxis Anticoagulated on warfarin, INR supratherapeutic DNR/DNI as per discussion with pt Follows with Dr Harvey for routine care Pt was seen and care coordinated with Dr Belcher. See addendum I spent a total of 77 minutes reviewing notes, outpatient records, labs, medication, coordinating, documenting and providing care for this patient excluding time spent in the performance of separately billed services. Admission and Anticipated Discharge Date Admission Date: August 16, 2022 Results & Data Results & Data Vital Signs (Past 12 Hours) Vital Signs Temp Pulse Pulse Resp BP BP Pulse Ox 08/17/22 08:43 111 H 18 97 08/17/22 07:40 36.5 C 88 19 127/84 98 08/17/22 03:51 36.5 C 88 18 111/71 93 08/17/22 00:18 08/16/22 23:13 110 H 18 94 08/16/22 22:18 36.5 C 112 H 18 138/90 94 O2 Del Method O2 Flow Rate 08/17/22 08:43 Nasal Cannula 6 08/17/22 07:40 Room Air 08/17/22 03:51 Nasal Cannula 4 08/17/22 00:18 Nasal Cannula 2 08/16/22 23:13 Nasal Cannula 6 08/16/22 22:18 Nasal Cannula 2
[2022-08-17] MEDS: guaiFENesin 600 MG TABCR PO SCH ×2 (09:20→20:56)
--- NOTE | 2022-08-17 10:51 | Cardiology Consultation ---
Date of Consultation August 17, 2022 Assessment & Plan (1) Atrial fibrillation/flutter: (2) COPD exacerbation: (3) Acute respiratory failure with hypoxia: (4) Bronchitis due to human metapneumovirus (hMPV): Plan New onset atrial fibrillation/flutter with a rapid ventricular response. Duration unknown. Patient chronically anticoagulated with Coumadin due to history of remote DVT/bilateral PE. Patient appears primarily symptomatic from the acute URI only. Options of management discussed. We specifically discussed rate versus rhythm control, beta-blockers, calcium channel blockers, digoxin, antiarrhythmic therapy, direct current cardioversion, and anticoagulation includ ing the continued use of warfarin versus a DOAC. Via shared decision making, will proceed with attempted rate control with beta-aakash therapy. Anticoagulation to be maintain though held for now noting the supratherapeutic INR this morning. Following resolution of the URI, pending symptoms, would reconsider ongoing rate control strategy versus referral for direct-current cardioversion as discussed. Supervising Physician Co-Signing Physician Notes I have reviewed the advanced practitioner documentation and agree. I saw and evaluated the patient on date of service referenced in note and have performed the following medically appropriate history and/or exam: Patient presented with concerns of upper respiratory tract infection and was incidentally found to have new onset atrial fibrillation with rapid ventricular response. He is already anticoagulated as an outpatient for history of DVT and PE. He is asymptomatic from the A-fib standpoint. Rate versus rhythm control was discussed and the patient is in agreement that he would prefer a rate control strategy. At this time, we will attempt to uptitrate beta-aakash for further rate control. General: Awake, alert and oriented x 3. No acute distress. HEENT: Normocephalic, atraumatic. Pupils equal, round and reactive to light and accommodation. Extraocular muscles are intact. Anicteric sclera. Moist mucous membranes. Neck: No JVD. No bruit. Cardiovascular: irregularly irregular, unable to appreciate murmur, rub or gallop. Pulmonary: Clear to auscultation bilaterally. No rales, rhonchi, or wheezing. Abdomen: Bowel sounds x 4, soft. No rebound, guarding or tenderness. No organomegaly. Extremities: No clubbing, cyanosis or edema. +2 pedal pulses bilaterally. Skin: Warm and dry. 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 Symptoms began 4 to 5 days prior to presentation. Notes utilizing an albuterol inhaler every four hours with some benefit. Notes taking 10 mg of prednisone Wednesday evening as well as Wednesday morning, also with some perceived improvement. EKG at [facility] revealed new onset atrial fibrillation/flutter with a rapid ventricular response. Due to EKG findings as well as concern for possible left lower lobe pneumonia, borderline low SPO2, patient was referred to the [facility] ER via EMS transport. EKG on presentation to the [facility] ER revealed atrial flutter/fibrillation with a ventricular rate of 110 bpm with left axis deviation, possible old inferior infarct. A second EKG on the revealed atrial fibrillation with a rapid ventricular res high-sensitivity response with premature ventricular or aberrantly conducted complexes and left axis deviation. INR was supratherapeutic on presentation at 3.9; 5.8 this morning. No epistaxis, hemoptysis, melena, hematochezia, or hematuria. Troponin I mildly elevated at 57.8, 60.8, 65.8, 60.4 pg/mL. Patient denies chest discomfort. No palpitations. Chest x-ray revealed peribronchial thickening compatible with infectious/inflammatory airways disease or viral pneumonia. No xin consolidation observed. Resting echocardiography on August 16, 2022 revealed preserved LV systolic function without segmental left ventricular wall motion abnormalities. Ejection fraction was normal, EF 55 to 60%. Left atrial size is normal. Mild mitral regurgitation observed. No pericardial effusion. Normal- sized aortic root and proximal ascending aorta. Continuous clinical research monitor has revealed atrial fibrillation/flutter with ventricular rates in the 90 to 120 bpm range. 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 Father passed with an AL at 62. Social History: Non-smoker. No alcohol over the last 3 years. No illegal drug use. Retired physician, general practitioner. [place] . Lives with his Nikki. Six children. Ambulation is via a walker, limited primarily by left knee pain. History of retinal hemorrhage. Complete review of system is otherwise as stated above, negative, noncontributory. Allergies Allergy/AdvReac Type Severity Reaction Status Date / Time NSAIDS (Non-Steroidal Allergy Severe WHEEZING Verified 08/16/22 14:51 Anti-Inflamma Home Medications Medication Instructions Recorded Confirmed Type albuterol sulfate 90 mcg/actuation 2 puff inhalation Q4H PRN 08/16/22 08/16/22 History aerosol inhaler (Ventolin HFA) Shortness Of Breath Or Wheezing cholecalciferol (vitamin D3) 10 0 mcg PO QAM 08/16/22 08/16/22 History mcg (400 unit) tablet (Vitamin D3) fluticasone furoate 100 1 inh inhalation DAILY 08/16/22 08/16/22 History mcg-vilanterol 25 mcg/dose inhalation powder (Breo Ellipta) furosemide 20 mg tablet 20 mg PO DAILY PRN Edema 08/16/22 08/16/22 History melatonin 5 mg tablet 5 mg PO HS 08/16/22 08/16/22 History prednisone 5 mg tablets in a dose 5 mg PO DIRECTED 08/16/22 08/16/22 History pack warfarin 5 mg tablet 2.5 mg PO UD 08/16/22 08/16/22 History warfarin 5 mg tablet 5 mg PO UD 08/16/22 08/16/22 History Patient History Medical History Anticoagulated on Coumadin (11/06/13) Asthma Basal cell carcinoma Bladder CA in situ COPD (chronic obstructive pulmonary disease) DVT (deep venous thrombosis) Dyslipidemia Pulmonary embolism Surgical History H/O arthroscopic knee surgery H/O cystoscopy "with fulguration of bladder tumor" History of appendectomy History of total hip replacement S/P cataract surgery S/P cholecystectomy (11/06/13) S/P tonsillectomy and adenoidectomy Family History Father Heart disease Social History Smoking Status: Never smoker Hx Alcohol Use: Yes Hx Substance Use: No Preferred Language: Lao Communication Ability: Effective Gum Remover Required: No Beliefs That Will Affect Care: None Current Living Situation: Spouse Other Information That Helps Us Care for You: No Feels Safe at Home: Yes Safety Concerns: Feels Safe At This Time Assistive Devices: Walker Review of Systems Review of Systems: Complete review of systems is otherwise as stated above, negative, or noncontributory Physical Exam Physical Exam: General: A&Ox3. NAD. HENT: Normocephalic. Atraumatic. Eyes: PER. Conjunctiva pink, sclera clear. Neck: No carotid bruits. No JVD. No HJR. Heart: Irregularly irregular at 100 bpm. No murmur. No rub. No gallop. PMI is nondisplaced. Lungs: Diminished. Decreased. Diffuse expiratory wheezing. Left mid lung rhonchi. Abdomen: +BS. Soft. Nontender. No masses or organomegaly. Extremities: Marked stasis changes. No clubbing. No cyanosis. No edema. Limited neurological examination is without focal deficits. Pulses: radial=2/4, posterior tibial=2/4. Results & Data Vital Signs (Past 12 Hours) Vital Signs Temp Pulse Pulse Resp BP Pulse Ox O2 Del Method 08/17/22 08:00 98 H 08/17/22 08:00 Nasal Cannula 08/17/22 08:43 111 H 18 97 Nasal Cannula 08/17/22 07:40 36.5 C 88 19 127/84 98 Room Air 08/17/22 03:51 36.5 C 88 18 111/71 93 Nasal Cannula 08/17/22 00:18 Nasal Cannula 08/16/22 23:13 110 H 18 94 Nasal Cannula O2 Flow Rate 08/17/22 08:00 08/17/22 08:00 2 08/17/22 08:43 6 08/17/22 07:40 08/17/22 03:51 4 08/17/22 00:18 2 03/26/23 23:13 6 Laboratory Results Cardiac Enzymes 08/16/22 08/16/22 08/16/22 Range/Units 10: 12:00 15:30 AST 27 (13-39) U/L Troponin I High Sens 57.8 H* 60.8 H* (0-20) pg/ml B-Natriuretic Peptide 304 H (0-100) pg/ml 08/16/22 08/17/22 Range/Units 19:39 01:55 AST (13-39) U/L Troponin I High Sens 65.8 H* 60.4 H* (0-20) pg/ml B-Natriuretic Peptide (0-100) pg/ml Coagulation 08/16/22 08/16/22 08/17/22 Range/Units 10:29 12:00 01:55 PT 38.7 H 56.2 H (9.0-12.0) Seconds APTT 45.0 H (21.0-31.0) Seconds B-Natriuretic Peptide 304 H (0-100) pg/ml CBC 08/16/22 08/17/22 Range/Units 10:29 01:55 WBC 4.69 L 3.77 L (4.8-10.8) K/ul RBC 5.11 4.75 (4.70-6.10) M/uL Hgb 16.0 15.1 (14.0-18.0) g/dl Hct 46.0 43.2 (42.0-52.0) % Plt Count 157 156 (130-400) K/uL Neut # (Auto) 3.84 (1.40-6.50) K/uL Lymph # (Auto) 0.52 L (1.2-3.4) K/uL [place] # (Auto) 0.32 (0.11-0.59) K/uL Eos # (Auto) 0.00 (0-0.50) K/uL Baso # (Auto) 0.00 (0-0.2) K/uL Comprehensive Metabolic Panel 08/16/22 08/17/22 Range/Units 10:29 01:55 Sodium 135 L 138 (136-145) mmol/L Potassium 4.1 4.6 (3.5-5.1) mmol/L Chloride 102 105 (98-107) mmol/L Carbon Dioxide 22 24 (21-32) mmol/L BUN 20 26 H (6-23) mg/dl Creatinine 1.00 1.09 (0.6-1.4) mg/dl Glucose 124 H 157 H (70-99(Fasting)) mg/dl Calcium 8.9 8.5 L (8.6-10.3) mg/dl Direct Bilirubin 0.4 H (0-0.2) mg/dl AST 27 (13-39) U/L ALT 13 (7-52) U/L Alkaline Phosphatase 79 (34-104) U/L Total Protein 6.9 (6.0-8.3) gm/dl Albumin 3.9 (3.4-5.0) gm/dl Intake and Output 08/16/22 08/17/22 08/17/22 22:59 06:59 14:59 Intake Total 110 / 819.167 209.167 / 819.167 Balance 110 / 819.167 209.167 / 819.167 Intake: IV 110 / 719.167 109.167 / 719.167 Doxycycline Hyclate 100 mg In 110 / 219.167 109.167 / 219.167 Dextrose 5% 100 ml @ 50 mls/hr IV Q12H JOHN Rx#:[id number] Oral 100 / 100 Other: # Unmeasured Voids 1 Weight 101.5 kg 96.7 kg Weight Measurement Method Built in [facility] Built in [facility]
--- NOTE | 2022-08-17 15:09 | Hospitalist Progress Note ---
Date of Service August 17, 2022 Assessment & Plan (1) Acute respiratory failure with hypoxia: (2) COPD exacerbation: (3) Atrial fibrillation with RVR: (4) Elevated troponin: (5) Pulmonary embolism: (6) DVT (deep venous thrombosis): (7) Anticoagulated on Coumadin: (8) Bladder CA in situ: Plan: (1) Acute respiratory failure with hypoxia: (2) COPD exacerbation: Possible Human Metapneumovirus Pneumonia Patient is 89-year-old male with PMH COPD, asthma, h/o DVT/PE, chronically anticoagulated on warfarin, dyslipidemia, bladder CA, basal cell carcinoma, venous stasis, presented to ER with complaint of shortness of breath x3 days. In ER oxygen sats dropped to 84% on room air with ambulation WBC: 4.7, procalcitonin: 0.05, BNP: 304 Negative SARS-CoV-2, RSV and influenza PCR Respiratory panel: + human metapneumovirus CXR: Peribronchial thickening is seen compatible with infectious/inflammatory airways disease or viral pneumonia. No xin consolidation is seen. Viral respiratory infection causing COPD exacerbation. Does not at appear volume overloaded In ER given 500 mL NSS, Lasix 40 mg IV, prednisone 50 mg p.o., albuterol neb Supplemental oxygen as needed, wean as able Xopenex, Atrovent nebs Solu-Medrol Doxycycline Continue home Breo CBC in a.m. 08/17 gradually improving o2 being weaned off still has some wheezing continue Solumedrol, Nebs, Doxy, Mucinex IS, FV continue usual Breao wean off O2 accordingly (3) Atrial fibrillation with RVR: Plan: Was found to be in new onset atrial fibrillation on EKG today. Heart rates low 100s - 120s in ER No significant electrolyte abnormality TSH pending Suspect respiratory infection causing new onset a-fib Monitor on telemetry Start metoprolol tartrate 25 mg 3 times daily Patient already anticoagulated on warfarin Echo Cardiology consult BMP, magnesium level in a.m. 08/17 Cardiology consulted HR controlled Echo: normal EF, no RWMA, mild mitral regurg continue Metoprolol 25 mg TID already on coumadin INR 5.8 hold coumadin received Vit K po overnight INR daily (4) Elevated troponin: Plan: Denies chest pain High-sensitivity troponin: 57.8 Suspect demand ischemia secondary to atrial fibrillation RVR Trend troponin Echo Control heart rate as above 3/27 troponin remained in the 60s (5) Pulmonary embolism: (6) DVT (deep venous thrombosis): (7) Anticoagulated on Coumadin: Plan: History of DVT/PE, chronically anticoagulated on warfarin INR: 3.9 Hold warfarin tonight INR in a.m. to further adjust 08/17 management per above (8) Bladder CA in situ: Plan: History of bladder CA s/p treatment DVT Prophylaxis Anticoagulated on warfarin, INR supratherapeutic DNR/DNI as per discussion with pt Follows with Dr Harvey for routine care Admission and Anticipated Discharge Date Admission Date: August 16, 2022 Subjective ff up for copd exacerbation, a fib, etc seen resting in bed, comfortable on room air, in good spirits states he feels improved compared to yesterday breathing is improving still has productive cough no fever/chills no chest pain no palpitations, dizziness no other symptoms Review of Systems Review of Systems: all noted and negative except for above Physical Exam Physical Exam: General- oriented x 3, not in distress, speaks in sentences with no effort or accessory muscle use Eyes- anicteric Neck- no JVD Lungs- mild-moderate wheeze BL no crackles no wheezing Heart- normal rate,irregularly irregular rhythm; no murmurs Abdomen- normal bowel sounds, nondistended, soft, nontender Extremities- trace pretibial edema, dry sking, no calf tenderness Neuro- alert, oriented x 3; no gross focal neurologic deficits Skin- warm & dry Results & Data Results & Data Vital Signs (Past 12 Hours) Vital Signs Temp Pulse Pulse Resp BP Pulse Ox Pulse Ox 08/17/22 13:53 91 08/17/22 11:35 76 15 96 08/17/22 11:13 36.3 C L 95 H 18 138/83 94 08/17/22 08:00 98 H 08/17/22 08:00 08/17/22 08:43 111 H 18 97 08/17/22 07:40 36.5 C 88 19 127/84 98 08/17/22 03:51 36.5 C 88 18 111/71 93 Pulse Ox Pulse Ox O2 Del Method O2 Flow Rate O2 Flow Rate O2 Flow Rate O2 Flow Rate 08/17/22 13:53 91 89 L 3.5 3.5 0 08/17/22 11:35 Nasal Cannula 3 08/17/22 11:13 Nasal Cannula 2 08/17/22 08:00 08/17/22 08:00 Nasal Cannula 2 08/17/22 08:43 Nasal Cannula 6 08/17/22 07:40 Room Air 08/17/22 03:51 Nasal Cannula 4 all noted and reviewed including below
[2022-08-17] MEDS: MELATONIN 3 MG TAB PO SCH (20:56)
[2022-08-18] MEDS: DOXYCYCLINE HYCLATE 100 MG in DEXTROSE 5% 100 ML IV SCH ×2 (02:15→15:56)
[2022-08-18] MEDS: methylPREDNISolone 40 MG in SYRINGE 0 ML IV SCH ×2 (06:05→15:07)
[2022-08-18 06:32] LABS: BUN Creatinine Ratio 28.7 (10-20); Calcium 8.9 mg/dl (8.6-10.3); Creatinine Clr Calc Pharmacy 49.2 ml/min; Est GFR (Non-African American) 56.1 ml/min; Potassium 4.3 mmol/L (3.5-5.1)
[2022-08-18 06:35] LABS: INR 1.8 (0.9-1.1)
[2022-08-18] MEDS: SODIUM CHLOR 7% 4 ML NEB NEB SCH (06:54)
[2022-08-18] MEDS: IPRATROPIUM BROMIDE NEB SOLN 0.02% 2.5 ML VIAL INH SCH ×3 (06:54→15:00)
[2022-08-18] MEDS: LEVALBUTEROL 1.25MG/0.5ML NEB INH SCH ×3 (06:54→15:01)
[2022-08-18] MEDS: METOPROLOL TARTRATE 25 MG TAB PO SCH (07:44)
[2022-08-18] MEDS: FLUTICASONE/VILANTEROL 100/25MCG 14 PUFFS/INHALER INH SCH (07:44)
[2022-08-18] MEDS: guaiFENesin 600 MG TABCR PO SCH ×2 (07:45→21:01)
--- NOTE | 2022-08-18 08:52 | Hospitalist Progress Note ---
Date of Service August 18, 2022 Assessment & Plan (1) Acute respiratory failure with hypoxia: (2) COPD exacerbation: (3) Atrial fibrillation with RVR: (4) Elevated troponin: (5) Pulmonary embolism: (6) DVT (deep venous thrombosis): (7) Anticoagulated on Coumadin: (8) Bladder CA in situ: Plan: (1) Acute respiratory failure with hypoxia: (2) COPD exacerbation: Possible Human Metapneumovirus Pneumonia Patient is 89-year-old male with PMH COPD, asthma, h/o DVT/PE, chronically anticoagulated on warfarin, dyslipidemia, bladder CA, basal cell carcinoma, venous stasis, presented to ER with complaint of shortness of breath x3 days. In ER oxygen sats dropped to 84% on room air with ambulation WBC: 4.7, procalcitonin: 0.05, BNP: 304 Negative SARS-CoV-2, RSV and influenza PCR Respiratory panel: + human metapneumovirus CXR: Peribronchial thickening is seen compatible with infectious/inflammatory airways disease or viral pneumonia. No xin consolidation is seen. 08/18 gradually improving weaned off oxygen still has scattered BL wheezing transition from Solumedrol 40mg IV q8h to Prednisone 40mg BID, Nebs PRN- per patient's request, Doxy, Mucinex continue usual Breo will need 2 step exercise test prior to discharge (3) Atrial fibrillation with RVR: Plan: Was found to be in new onset atrial fibrillation on EKG today. Heart rates low 100s - 120s in ER No significant electrolyte abnormality TSH normal 08/18 Cardiology consulted still in A fib HR elevated again this morning Echo: normal EF, no RWMA, mild mitral regurg increased to Metoprolol 50mg BID already on coumadin INR 1.8 received Vit K po yesterday morning coumadin 5mg today INR tomorrow usual coumadin dose: 2.5mg sun//th 5 mg all other days (4) Elevated troponin: Plan: Denies chest pain High-sensitivity troponin: 57.8 demand ischemia secondary to atrial fibrillation RVR troponin remained in the 60s (5) Pulmonary embolism: (6) DVT (deep venous thrombosis): (7) Anticoagulated on Coumadin: Plan: History of DVT/PE, chronically anticoagulated on warfarin INR: 1.8 management per above (8) Bladder CA in situ: Plan: History of bladder CA s/p treatment DVT Prophylaxis Anticoagulated on warfarin, INR supratherapeutic DNR/DNI as per discussion with pt Follows with Dr Harvey for routine care Disposition anticipate return home with family upon discharge 2 step exercise test upon discharge Admission and Anticipated Discharge Date Admission Date: August 16, 2022 Subjective ff up for COPD exacerbation, metapneumovirus infection, a fib, etc seen resting in bed, comfortable in good spirits on room air states continues to feel improved still has some dyspnea with exertion has occasional cough no chest pain, palpitations, dizziness no other symptoms Review of Systems Review of Systems: all noted and negative except for above Physical Exam Physical Exam: General- oriented x 3, not in distress, speaks in sentences with no effort or accessory muscle use Eyes- anicteric Neck- no JVD Lungs-mild scattered wheeze BL no rales Heart- normal rate, regular rhythm; no murmurs Abdomen- normal bowel sounds, nondistended, soft, nontender Extremities- no pretibial edema, no calf tenderness Neuro- alert, oriented x 3; no gross focal neurologic deficits Skin- warm & dry Results & Data Results & Data Vital Signs (Past 12 Hours) Vital Signs Temp Pulse Pulse Resp BP Pulse Ox O2 Del Method 08/18/22 07:06 36.7 C 122 H 21 117/86 97 Room Air 08/18/22 06:55 81 17 95 Room Air 08/18/22 03:00 36.5 C 93 H 18 144/87 H 91 Room Air 08/17/22 22:35 94 H 08/17/22 22:46 36.5 C 93 H 18 119/74 93 Room Air all noted and reviewed including below
--- NOTE | 2022-08-18 09:48 | Cardiology Progress Note ---
Date of Service August 18, 2022 Assessment & Plan (1) Atrial fibrillation/flutter: (2) COPD exacerbation: (3) Acute respiratory failure with hypoxia: (4) Bronchitis due to human metapneumovirus (hMPV): Plan New onset atrial flutter with a rapid ventricular response. Seemingly as ymptomatic. Duration unknown. Patient chronically anticoagulated with Coumadin due to history of remote DVT/bilateral PE. Via shared decision making, will proceed with attempted rate control with beta-aakash therapy, increasing metoprolol tartrate to 50 mg twice per day. Anticoagulation with Coumadin to be maintain, INR goal 2.0-3.0. Following resolution of the URI, pending heart rates and symptoms, would consider ongoing rate control strategy versus direct-current cardioversion. Cardiology hospital discharge follow-up at [facility] in 3-4 weeks, or as needed. Admission and Anticipated Discharge Date Admission Date: August 16, 2022 Supervising Physician Co-Signing Physician Notes I have reviewed the advanced practitioner documentation and agree. I saw and evaluated the patient on date of service referenced in note and have performed the following medically appropriate history and/or exam: Symptoms have improved since admission. Tolerating increase of beta-aakash Goal INR of 2-3. We will discuss further options of rate versus rhythm control strategy once URI has resolved. General: Awake, alert and oriented x 3. No acute distress. HEENT: Normocephalic, atraumatic. Pupils equal, round and reactive to light and accommodation. Extraocular muscles are intact. Anicteric sclera. Moist mucous membranes. Neck: No JVD. No bruit. Cardiovascular: irregularly irregular, unable to appreciate murmur, rub or ga llop. Pulmonary: Clear to auscultation bilaterally. No rales, rhonchi, or wheezing. Abdomen: Bowel sounds x 4, soft. No rebound, guarding or tenderness. No organomegaly. Extremities: No clubbing, cyanosis or edema. +2 pedal pulses bilaterally. Skin: Warm and dry. Subjective Patient seen and examined. Chart, medications, and telemetry reviewed. Feels better - some improvement in cough and congestion, less wheezing, improved dyspnea. No chest pain or palpitations. Telemetry: Atrial flutter with occasional PVCs, heart rates ranging from the 80s to 130s INR 1.8 (received 2.5 mg of phytonadione on 08/17/2022) Review of Systems Review of Systems: Complete review of systems is otherwise as stated above, negative, or noncontributory Physical Exam Physical Exam: General: A&Ox3. NAD. HENT: Normocephalic. Atraumatic. Eyes: PER. Conjunctiva pink, sclera clear. Neck: No carotid bruits. No JVD. No HJR. Heart: Irregularly irregular at 96 bpm. No murmur. No rub. No gallop. PMI is nondisplaced. Lungs: Diminished. Decreased. Scattered rhonchi. Much less wheezing Abdomen: +BS. Soft. Nontender. No masses or organomegaly. Extremities: Marked stasis changes. No clubbing. No cyanosis. No edema. Limited neurological examination is without focal deficits. Pulses: radial=2/4, posterior tibial=2/4. Results & Data Vital Signs (Past 12 Hours) Vital Signs Temp Pulse Pulse Resp BP Pulse Ox O2 Del Method 08/18/22 07:06 36.7 C 122 H 21 117/86 97 Room Air 08/18/22 06:55 81 17 95 Room Air 08/18/22 03:00 36.5 C 93 H 18 144/87 H 91 Room Air 08/17/22 22:35 94 H 08/17/22 22:46 36.5 C 93 H 18 119/74 93 Room Air Laboratory Results Coagulation 08/18/22 Range/Units 05:34 PT 19.0 H (9.0-12.0) Seconds Comprehensive Metabolic Panel 08/18/22 Range/Units 05:34 Sodium 138 (136-145) mmol/L Potassium 4.3 (3.5-5.1) mmol/L Chloride 104 (98-107) mmol/L Carbon Dioxide 26 (21-32) mmol/L BUN 33 H (6-23) mg/dl Creatinine 1.15 (0.6-1.4) mg/dl Glucose 154 H (70-99(Fasting)) mg/dl Calcium 8.9 (8.6-10.3) mg/dl Intake and Output 08/17/22 08/18/22 08/18/22 22:59 06:59 14:59 Intake Total 310 / 815 110 / 815 Balance 310 / 815 110 / 815 Intake: IV 110 / 220 110 / 220 Doxycycline Hyclate 100 mg In 110 / 220 Dextrose 5% 100 ml @ 50 mls/hr IV Q12H [facility] Rx#:[id number] Oral 200 / 595 Other: # Unmeasured Voids 2 1 Weight 93.3 kg Weight Measurement Method Built in [facility]
--- NOTE | 2022-08-18 13:37 | Electrocardiogram Report ---
Test Reason : Blood Pressure : / mmHG Vent. Rate : 097 BPM Atrial Rate : 278 BPM P-R Int : 000 ms QRS Dur : 090 ms QT Int : 338 ms P-R-T Axes : 000 -50 076 degrees QTc Int : 429 ms Atrial flutter with variable A-V block Low voltage QRS Left anterior fascicular block Cannot rule out Inferior infarct , age undetermined Abnormal ECG When compared with ECG of 16-AUG-2022 11:19, Atrial flutter has replaced Atrial fibrillation QT has shortened Confirmed by Ramón Berg ([id number]) on 08/18/2022 1:37:38 PM Referred By: REFERRED SELF Confirmed By:Ramón Berg
[2022-08-18] MEDS ORDERED: WARFARIN SOD 5 MG TAB PO ONE (16:00)
[2022-08-18] MEDS ORDERED: XOPENEX/ATROVENT 1.25mg/0.5MG NEB COMBO NEB PRN (18:53)
[2022-08-18] MEDS ORDERED: LEVALBUTEROL 1.25MG/0.5ML NEB INH PRN (19:00)
[2022-08-18] MEDS ORDERED: IPRATROPIUM BROMIDE NEB SOLN 0.02% 2.5 ML VIAL INH PRN (19:00)
[2022-08-18] MEDS: DOXYCYCLINE HYCLATE 100 MG CAP PO SCH (20:59)
[2022-08-18] MEDS: METOPROLOL TARTRATE 50 MG TAB PO SCH (21:01)
[2022-08-18] MEDS: predniSONE 20 MG TAB PO SCH (21:02)
[2022-08-18] MEDS: MELATONIN 3 MG TAB PO SCH (21:04)
[2022-08-19 07:34] LABS: INR 1.6 (0.9-1.1); Prothrombin Time 16.8 Seconds (9.0-12.0)
[2022-08-19 09:15] LABS: BUN Creatinine Ratio 29.5 (10-20); Calcium 9.2 mg/dl (8.6-10.3); Creatinine Clr Calc Pharmacy 50.5 ml/min; Est GFR (African American) 67.1 ml/min; Est GFR (Non-African American) 57.9 ml/min; Magnesium 2.1 mg/dl (1.7-2.4); Potassium 4.8 mmol/L (3.5-5.1)
[2022-08-19] MEDS: FLUTICASONE/VILANTEROL 100/25MCG 14 PUFFS/INHALER INH SCH (09:48)
[2022-08-19] MEDS: guaiFENesin 600 MG TABCR PO SCH (09:48)
[2022-08-19] MEDS: predniSONE 20 MG TAB PO SCH (09:49)
[2022-08-19] MEDS: METOPROLOL TARTRATE 50 MG TAB PO SCH (09:49)
[2022-08-19] MEDS: DOXYCYCLINE HYCLATE 100 MG CAP PO SCH (09:51)
--- NOTE | 2022-08-19 10:57 | Cardiology Progress Note ---
Date of Service August 19, 2022 Assessment & Plan (1) Atrial fibrillation/flutter: (2) COPD exacerbation: (3) Acute respiratory failure with hypoxia: (4) Bronchitis due to human metapneumovirus (hMPV): Plan Admission with a viral URI, new onset atrial flutter with a rapid ventricular response of unknown duration (heart rate elevated when evaluated by PCP in June). Patient chronically anticoagulated with Coumadin due to history of remote DVT/bilateral PE. Via shared decision making, will proceed with attempted rate control with beta-aakash therapy. Continue metoprolol tartrate at 50 mg twice per day. Anticoagulation with Coumadin to be maintained, INR goal 2.0-3.0. Following resolution of the URI, pending heart rates and symptoms, would consider ongoing rate control strategy versus referral for direct-current cardioversion. Patient to establish with Dr. Nabil Coates at [facility] on September 02, 2022 at 1:00 PM. Admission and Anticipated Discharge Date Admission Date: August 16, 2022 Subjective Patient seen and examined. Chart, medications, and telemetry reviewed. at bedside. With the added medical issues she thinks it would be best for him to transition to an Internal Medicine provider as an outpatient (Winnie) and also requests a DME for a rolling walker which I addressed. Feels fine, anxious for discharge. Some improvement in cough and congestion, ongoing mild wheezing (improved). No chest pain or palpitations. No abdominal bloating (utilizes furosemide PRN for abdominal bloating prior to hosp italization) Telemetry: Atrial flutter with occasional PVCs, one 6 beat run of wide complex tachycardia shortly after midnight, asymptomatic. INR 1.6 Review of Systems Review of Systems: Complete review of systems is otherwise as stated above, negative, or noncontributory Physical Exam Physical Exam: General: A&Ox3. NAD. HENT: Normocephalic. Atraumatic. Eyes: PER. Conjunctiva pink, sclera clear. Neck: No carotid bruits. No JVD. No HJR. Heart: Irregularly irregular at 80 bpm. No murmur. No rub. No gallop. PMI is nondisplaced. Lungs: Diminished. Decreased. + Expiratory wheezing. Abdomen: +BS. Soft. Nontender. No masses or organomegaly. Extremities: Marked stasis changes. No clubbing. No cyanosis. No edema. Limited neurological examination is without focal deficits. Pulses: radial=2/4, posterior tibial=2/4. Results & Data Vital Signs (Past 12 Hours) Vital Signs Temp Pulse Pulse Resp BP Pulse Ox O2 Del Method 08/19/22 10:40 Room Air 08/19/22 07:46 80 08/19/22 06:28 36.3 C L 95 H 18 138/88 93 Room Air 08/19/22 03:35 36.4 C L 78 17 124/78 92 Room Air 08/19/22 01:00 93 H 08/18/22 23:15 Room Air Laboratory Results Coagulation 08/19/22 Range/Units 07:01 PT 16.8 H (9.0-12.0) Seconds Comprehensive Metabolic Panel 08/19/22 Range/Units 07:01 Sodium 140 (136-145) mmol/L Potassium 4.8 (3.5-5.1) mmol/L Chloride 106 (98-107) mmol/L Carbon Dioxide 26 (21-32) mmol/L BUN 33 H (6-23) mg/dl Creatinine 1.12 (0.6-1.4) mg/dl Glucose 126 H (70-99(Fasting)) mg/dl Calcium 9.2 (8.6-10.3) mg/dl Intake and Output 08/18/22 08/19/22 08/19/22 22:59 06:59 14:59 Intake Total 275 / 755 Balance 275 / 755 Intake: Oral 275 / 755 Other: Other Intake Source SIPS # Unmeasured Voids 1 1 Weight 95.3 kg Weight Measurement Method Built in [facility]
--- NOTE | 2022-08-19 12:41 | Hospitalist Progress Note ---
Date of Service August 19, 2022 Assessment & Plan (1) Acute respiratory failure with hypoxia: (2) COPD exacerbation: (3) Atrial fibrillation with RVR: (4) Elevated troponin: (5) Pulmonary embolism: (6) DVT (deep venous thrombosis): (7) Anticoagulated on Coumadin: (8) Bladder CA in situ: Plan: (1) Acute respiratory failure with hypoxia: (2) COPD exacerbation: Possible Human Metapneumovirus Pneumonia Patient is 89-year-old male with PMH COPD, asthma, h/o DVT/PE, chronically anticoagulated on warfarin, dyslipidemia, bladder CA, basal cell carcinoma, venous stasis, presented to ER with complaint of shortness of breath x3 days. In ER oxygen sats dropped to 84% on room air with ambulation WBC: 4.7, procalcitonin: 0.05, BNP: 304 Negative SARS-CoV-2, RSV and influenza PCR Respiratory panel: + human metapneumovirus CXR: Peribronchial thickening is seen compatible with infectious/inflammatory airways disease or viral pneumonia. No xin consolidation is seen. Has been saturating normally on room air Was started with doxycycline and the patient has been refusing because of fear of altering INR No significant indication to continue antibiotic and this was discontinued from today Transition from Solumedrol 40mg IV q8h to Prednisone 40mg BID, Nebs PRN- per patient's request, Doxy, Mucinex Continue usual Breo Clinically much better and the patient wants to be discharged today We will get 2 steps O2 saturation test prior to discharge (3) Atrial fibrillation with RVR: Plan: Was found to be in new onset atrial fibrillation on EKG today. Heart rates low 100s - 120s in ER No significant electrolyte abnormality TSH normal Appreciate cardiology input and recommendation Heart rate is controlled with increasing dose of metoprolol Echo: normal EF, no RWMA, mild mitral regurg INR remains on the lower side at 1.6 today Will be discharged home this afternoon with a follow-up in the coagulation clinic Usual coumadin dose: 2.5mg sun/tues/thurs 5 mg all other days (4) Elevated troponin: Plan: Denies chest pain High-sensitivity troponin: 57.8 demand ischemia secondary to atrial fibrillation RVR troponin remained in the 60s No ACS (5) Pulmonary embolism: (6) DVT (deep venous thrombosis): (7) Anticoagulated on Coumadin: Plan: History of DVT/PE, chronically anticoagulated on warfarin INR: 1.6 on 08/19/2022 (8) Bladder CA in situ: Plan: History of bladder CA s/p treatment DVT Prophylaxis Anticoagulated on warfarin, INR supratherapeutic DNR/DNI as per discussion with pt Follows with Dr Harvey for routine care Will be discharged home this afternoon Admission and Anticipated Discharge Date Admission Date: August 16, 2022 Subjective 08/19/2022 The patient was seen and examined in telemetry unit He has been sitting on a chair without any acute symptoms Denies any shortness of breath at rest, palpitation, cough or any chest pain He wants to go home and he will be discharged this afternoon Review of Systems Review of Systems: All systems reviewed and are unremarkable except as noted below Respiratory: No shortness of breath at rest Physical Exam Physical Exam: Sitting on a chair without any acute distress Constitutional: well developed, well nourished, + ill appearing and average body habitus Eyes: PERRL, conjunctivae normal, anicteric sclerae ENMT: external ear and nose normal, oropharynx normal Neck: trachea midline, no thyromegaly Respiratory: no respiratory distress Auscultation: + diminished lung sounds and + crackles (Minimal crackles at the bases) Cardiovascular: Rate/Rhythm: + irregularly irregular; not tachycardic Heart Sounds: normal S1 and normal S2; no murmur Extremities: no edema Gastrointestinal (Abdomen): Inspection/Auscultation: normal bowel sounds; abdomen not distended Percussion/Palpation: abdomen soft; abdomen nontender Musculoskeletal: No acute arthritis involving any joint Neurologic: Alert, awake and oriented x3. No focal sensory or motor deficit appreciated Psychiatric: A+Ox3, euthymic affect Lymphatic: no cervical or axillary lymphadenopathy Results & Data Results & Data Vital Signs (Past 12 Hours) Vital Signs Temp Pulse Pulse Pulse Pulse Pulse Resp 08/19/22 10:58 36.5 C 82 18 08/19/22 11:31 80 74 70 08/19/22 10:40 08/19/22 07:46 80 08/19/22 06:28 36.3 C L 95 H 18 08/19/22 03:35 36.4 C L 78 17 08/19/22 01:00 93 H Resp Resp Resp BP Pulse Ox Pulse Ox Pulse Ox 08/19/22 10:58 131/83 92 08/19/22 11:31 20 18 18 93 94 08/19/22 10:40 08/19/22 07:46 08/19/22 06:28 138/88 93 08/19/22 03:35 124/78 92 08/19/22 01:00 Pulse Ox O2 Del Method 08/19/22 10:58 Room Air 08/19/22 11:31 93 08/19/22 10:40 Room Air 08/19/22 07:46 08/19/22 06:28 Room Air 08/19/22 03:35 Room Air 08/19/22 01:00 Laboratory Results BMP 08/19/22 07:01 Sodium 140 Potassium 4.8 Chloride 106 Carbon Dioxide 26 BUN 33 H Creatinine 1.12 Glucose 126 H Calcium 9.2 Medications Administered Current Inpatient Medications Acetaminophen (Acetaminophen 325 Mg Tab) 650 mg PO Q4H PRN PRN Reason: Pain or Fever Stop: 09/15/22 14:02 Fluticasone/Vilanterol (Fluticasone/Vilanterol 100/25mcg 14 Puffs/Inhaler) 1 puffs INH DAILY JOHN Stop: 09/16/22 08:59 Last Admin: 08/19/22 09:48 Dose: 1 puffs Guaifenesin (Guaifenesin 600 Mg Tabcr) 600 mg PO Q12 JOHN Stop: 09/16/22 08:59 Last Admin: 08/19/22 09:48 Dose: 600 mg Ipratropium [place] (Ipratropium [place] Neb Soln 0.02% 2.5 Ml Vial) 0.5 mg INH Q6H PRN PRN Reason: sob/wheezing Stop: 09/17/22 18:59 Levalbuterol HCl (Levalbuterol 1.25mg/0.5ml Neb) 1.25 mg INH Q6H PRN PRN Reason: sob/wheezing Stop: 09/17/22 18:59 Melatonin (Melatonin 3 Mg Tab) 6 mg PO HS JOHN Stop: 09/15/22 20:59 Last Admin: 08/18/22 21:04 Dose: 6 mg Metoprolol Tartrate (Metoprolol Tartrate 50 Mg Tab) 50 mg PO BID JOHN Stop: 09/17/22 20:59 Last Admin: 08/19/22 09:49 Dose: 50 mg Ondansetron HCl (Ondansetron Inj 2 Mg/Ml 2 Ml Vial) 4 mg IV Q6H PRN PRN Reason: Nausea Stop: 09/15/22 14:02 Polyethylene Glycol (Polyethylene (Miralax) 17 Gm Pack) 17 gm PO DAILY PRN PRN Reason: Constipation Stop: 09/15/22 14:02 Prednisone (Prednisone 20 Mg Tab) 40 mg PO BID [facility] Stop: 09/17/22 20:59 Last Admin: 08/19/22 09:49 Dose: 40 mg
--- NOTE | 2022-08-20 08:28 | Discharge Summary ---
Date of Service August 19, 2022 Admission HPI Per Admitting Provider Patient is 89-year-old male with PMH COPD, asthma, h/o DVT/PE, chronically anticoagulated on warfarin, dyslipidemia, bladder CA, basal cell carcinoma, venous stasis, presented to ER with complaint of shortness of breath x3 days. Patient states 3 days ago started with congestion, cough, shortness of breath, wheezing. Past 2 days has used his albuterol inhaler 4 times a day with limited relief of wheezing. Shortness of breath aggravated with exertion. Denies chest pain. Reports cough is productive however he does not expel sputum so is unsure of color. Has not taken his temperature at home but has been feeling chills the past 3 days. Reports decreased appetite. Has been having "gurgling" in his abdomen. Had loose bowel movement this morning prior to arrival. Denies abdominal pain or vomiting. Denies using OTC cold medications. He has also been feeling weak. At baseline ambulates with walker however has needed assistance ambulating with walker today. Denies falls. Denies known ill contacts however reports attends [employer] service that people were coughing around him. Went to [facility] urgent care clinic this morning as he was concerned he may have COVID. There he was found to be in new onset atrial fibrillation and hypoxic and was sent to ER. Denies GARCIA, dizziness, syncope, vision changes, neck pain, CP, palpitations, hemoptysis, sore throat, choking, otalgia, paresthesias, extremity edema, rashes, urinary symptoms. Admission Exam Per Admitting Provider Physical Exam: General: no acute distress, WDWN Head: normocephalic, atraumatic Eyes: conjunctiva non-injected, anicteric ENT: normal inspection external ears, nose, mucous membranes moist Neck: supple, trachea midline Lungs: no respiratory distress on current 2 L via nasal cannula, sats 95%, + diffuse wheezing throughout, no rhonchi/rales CV: Irregularly irregular, rate 120, no pitting edema Abd: normal BS, soft, non-tender Ext: no calf tenderness, + brown, erythematous, dry chronic skin changes to bilateral lower extremities Neuro: A&O x 3, no focal deficits noted, normal affect Skin: warm, dry Principal Diagnosis Acute respiratory failure with hypoxia, COPD exacerbation due to human [place] pneumo virus, A-fib with RVR Discharge Exam Sitting on a chair without any acute distress Constitutional well developed, well nourished, + ill appearing and average body habitus Eyes PERRL, conjunctivae normal, anicteric sclerae ENMT external ear and nose normal, oropharynx normal Neck trachea midline, no thyromegaly Respiratory no respiratory distress Auscultation: + diminished lung sounds and + crackles (Minimal crackles at the bases) Cardiovascular Rate/Rhythm: + irregularly irregular; not tachycardic Heart Sounds: normal S1 and normal S2; no murmur Extremities: no edema Gastrointestinal (Abdomen) Inspection/Auscultation: normal bowel sounds; abdomen not distended Percussion/Palpation: abdomen soft; abdomen nontender Psychiatric A+Ox3, euthymic affect Lymphatic no cervical or axillary lymphadenopathy Discharge Data Allergies Allergy/AdvReac Type Severity Reaction Status Date / Time NSAIDS (Non-Steroidal Allergy Severe WHEEZING Verified 08/16/22 14:51 Anti-Inflamma Consultations 08/16/22 13:08 ED Decision to Admit Stat 08/16/22 14:25 Consult Cardiology Routine Hospital Course (1) Acute respiratory failure with hypoxia: (2) COPD exacerbation: (3) Atrial fibrillation with RVR: (4) Elevated troponin: (5) Pulmonary embolism: (6) DVT (deep venous thrombosis): (7) Anticoagulated on Coumadin: (8) Bladder CA in situ: (1) Acute respiratory failure with hypoxia: (2) COPD exacerbation: Possible Human Metapneumovirus Pneumonia Patient is 89-year-old male with PMH COPD, asthma, h/o DVT/PE, chronically anticoagulated on warfarin, dyslipidemia, bladder CA, basal cell carcinoma, venous stasis, presented to ER with complaint of shortness of breath x3 days. In ER oxygen sats dropped to 84% on room air with ambulation WBC: 4.7, procalcitonin: 0.05, BNP: 304 Negative SARS-CoV-2, RSV and influenza PCR Respiratory panel: + human metapneumovirus CXR: Peribronchial thickening is seen compatible with infectious/inflammatory airways disease or viral pneumonia. No xin consolidation is seen. Has been saturating normally on room air Was started with doxycycline and the patient has been refusing because of fear of altering INR No significant indication to continue antibiotic and this was discontinued from today Transition from Solumedrol 40mg IV q8h to Prednisone 40mg BID, Nebs PRN- per patient's request, Doxy, Mucinex Continue usual Breo Clinically much better and the patient wants to be discharged today We will get 2 steps O2 saturation test prior to discharge (3) Atrial fibrillation with RVR: Plan: Was found to be in new onset atrial fibrillation on EKG today. Heart rates low 100s - 120s in ER No significant electrolyte abnormality TSH normal Appreciate cardiology input and recommendation Heart rate is controlled with increasing dose of metoprolol Echo: normal EF, no RWMA, mild mitral regurg INR remains on the lower side at 1.6 today Will be discharged home this afternoon with a follow-up in the coagulation clinic Usual coumadin dose: 2.5mg sun/tues/thurs 5 mg all other days (4) Elevated troponin: Plan: Denies chest pain High-sensitivity troponin: 57.8 demand ischemia secondary to atrial fibrillation RVR troponin remained in the 60s No ACS (5) Pulmonary embolism: (6) DVT (deep venous thrombosis): (7) Anticoagulated on Coumadin: Plan: History of DVT/PE, chronically anticoagulated on warfarin INR: 1.6 on 08/19/2022 (8) Bladder CA in situ: Plan: History of bladder CA s/p treatment DVT Prophylaxis Anticoagulated on warfarin, INR supratherapeutic DNR/DNI as per discussion with pt Follows with Dr Harvey for routine care Will be discharged home this afternoon Total Time Total Time Spent Total Time Spent (In Minutes): 35 minutes Discharge Plan Discharge Items Patient Disposition: Home - Self-Care Reason For Visit: AFIB Discharge Diagnosis: Acute respiratory failure with hypoxia, COPD exacerbation due to human [place] pneumo virus, A-fib with RVR Condition on Discharge: Good Activity: Resume your previous activity Non-emergency contact: Primary Care Provider Call non-emergency contact if: you have any medication questions and your symptoms worsen Follow-up/Referrals: Nabil Coates MD [Physician] - (Date & Time 09/02/2022 1:00 PM Provider Nabil Coates MD Department Cardiology, [facility] ) Wander Harvey MD [Primary Care Provider] - (Date & Time 08/26/2022 11:00 AM Provider Wander Harvey III, MD Department [facility] ) Diet: Heart Healthy and Low Sodium (2gm) Fluids: 1800ml (7 cups) Addtl Attending Provider Instructions: Please take precautions to avoid falls Take your medications as advised Continue prednisone as a tapering dose and after finishing continue with your maintenance dose of 5 mg Please give appointment with your healthcare providers Please have your regular follow-up with the Coumadin clinic to maintain an INR between 2-3 Pending Studies at Discharge: No Stand-Alone Forms: My [facility], Smoking Cessation Medications and DC Order Prescriptions: New metoprolol tartrate 50 mg Tablet 50 mg PO BID Qty: 60 0RF prednisone 20 mg Tablet 20 mg PO UD Qty: 16 0RF Rx Instructions: 2 tablet daily for 3 days, 1-1/2 tablet daily for 3 days, 1 tablet daily for 3 days, half tablet daily for 4 days Continued warfarin 5 mg tablet 5 mg PO UD Rx Instructions: 5mg on mon, wed, fri, sat warfarin 5 mg tablet 2.5 mg PO UD Rx Instructions: 2.5mg on wed, , ur furosemide 20 mg tablet 20 mg PO DAILY PRN (Reason: Edema) albuterol sulfate [Ventolin HFA] 90 mcg/actuation Hfa Aerosol Inhaler 2 puff INHALATION Q4H PRN (Reason: Shortness Of Breath Or Wheezing) melatonin 5 mg Tablet 5 mg PO HS fluticasone furoate-vilanterol [Breo Ellipta] 100-25 mcg/dose blister with device 1 inh INHALATION DAILY prednisone 5 mg Tablets,Dose Pack 5 mg PO DIRECTED Rx Instructions: Pt states he had old prescribed dose of prednisone that he took (08/16 AM) cholecalciferol (vitamin D3) [Vitamin D3] 10 mcg (400 unit) Tablet 0 mcg PO QAM Rx Instructions: Pt states he only usually remembers to take about twice a week Discharge Orders: Discharge Order (Routine); Ordered 08/19/22 Ordered By: Mandy Horn Admission Data Admit Date/Time: 08/16/22 13:38 Attending Provider: Mandy Horn Admit Provider: Jayme Belcher Primary Care Provider: Wander Harvey Other Providers: Jayme Belcher ; Patrick Hammond Robin A. ; [facility] Other Interventions: Discharge Summary Assessment (RN) Last Done: 08/19/22 13:28
== END 2022-08-19 14:00 | disposition home health service (06) | DRG 193 ==
LOC: ED 10:20 → SUATTDRO 13:38 → EDINP 13:38 → 2S 13:58

== ENCOUNTER 2022-09-15 06:18 | Inpatient (IN) ==
--- NOTE | 2022-09-15 07:13 | History & Physical Bridge Note ---
Date of Service September 15, 2022 History & Physical Bridge Note I have examined the patient, reviewed the History & Physical and in the interval since the performance of the History & Physical I have noted the following changes of clinical significance: no changes noted
--- NOTE | 2022-09-15 07:18 | Anesthesiology Consultation ---
Date of Service September 15, 2022 Assessment & Plan Chart Review Chart Review: Acceptable Risk for Surgery, Patient NOT seen in Pre Admission Testing and entry level buyer initiated Consults Requested none ASA ASA3 Proposed Anesthesia Anesthesia Type: MAC Risk / Benefits Reviewed With: PT / POA / Parent / Guardian, Accepts Plan and Informed Consent Obtained History Surgery Operation Date: 09/15/22 07:15 Proposed Procedures p Cardioversion Pipeline Inspector w/Anesthesia - Nabil Coates MD Height/Weight Height: 6 ft Weight: 92.533 kg Allergies Allergy/AdvReac Type Severity Reaction Status Date / Time NSAIDS (Non-Steroidal Allergy Severe WHEEZING Verified 08/16/22 14:51 Anti-Inflamma Medications Home Medications Medication Instructions Recorded Confirmed Last Taken albuterol sulfate 90 mcg/actuation 2 puff inhalation Q4H PRN 08/16/22 08/16/22 08/16/22 aerosol inhaler (Ventolin HFA) Shortness Of Breath Or Wheezing cholecalciferol (vitamin D3) 10 0 mcg PO QAM 08/16/22 08/16/22 Unknown mcg (400 unit) tablet (Vitamin D3) fluticasone furoate 100 1 inh inhalation DAILY 08/16/22 08/16/22 08/16/22 mcg-vilanterol 25 mcg/dose inhalation powder (Breo Ellipta) furosemide 20 mg tablet 20 mg PO DAILY PRN Edema 08/16/22 08/16/22 Unknown melatonin 5 mg tablet 5 mg PO HS 08/16/22 08/16/22 08/15/22 prednisone 5 mg tablets in a dose 5 mg PO DIRECTED 08/16/22 08/16/22 08/16/22 pack warfarin 5 mg tablet 2.5 mg PO UD 08/16/22 08/16/22 08/13/22 warfarin 5 mg tablet 5 mg PO UD 08/16/22 08/16/22 08/15/22 metoprolol tartrate 50 mg tablet 50 mg PO BID #60 tabs 08/19/22 Unknown prednisone 20 mg tablet 20 mg PO UD #16 tabs 08/19/22 Unknown NPO Date Last Intake of Fluids: 09/15/22 Time Last Intake of Fluids: 05:30 Last Intake of Fluids Comment: Sip with meds Date Last Intake of Solids: 09/14/22 Time Last Intake of Solids: 17:00 Past Medical History Medical History Anticoagulated on Coumadin (11/06/13) Asthma Basal cell carcinoma Bladder CA in situ COPD (chronic obstructive pulmonary disease) DVT (deep venous thrombosis) Dyslipidemia Pulmonary embolism Exercise / Class Metabolic Activity III < 4 Walking/Shop/Light housework Past Family History Family History Father Heart disease Past Surgical History Surgical History H/O arthroscopic knee surgery H/O cystoscopy "with fulguration of bladder tumor" History of appendectomy History of total hip replacement S/P cataract surgery S/P cholecystectomy (11/06/13) S/P tonsillectomy and adenoidectomy Past Anesthesia History No Hx of Anesthesia Complications and No Family Hx of Anesthesia Complications History of PONV No Hx of PONV and No Hx of Motion Sickness Social History Smoking Status: Never smoker Do You Dip or Chew Tobacco: No Hx Alcohol Use: No alcohol intake frequency: holidays/special occasions only Hx Substance Use: No Physical Exam Vital Signs Last Vital Signs Temp 36.9 C 09/15/22 06:59 Pulse 110 H 09/15/22 06:59 Resp 16 09/15/22 06:59 Pulse Ox 96 09/15/22 06:59 O2 Del Method Room Air 09/15/22 06:59 Constitutional no acute distress ENMT Mouth: no chipped teeth and no loose teeth Thyromental Distance: > or= 3.5 Finger Breadths Mallampati Class: II Neck normal visual inspection and trachea midline; neck extension not limited Respiratory normal respiratory effort; no respiratory distress Auscultation: lungs clear to auscultation bilaterally; no crackles, no rhonchi and no wheezes Cardiovascular Rate/Rhythm: + tachycardic; + abnormal rhythm Heart Sounds: no gallop, no murmur and no cardiac rub Musculoskeletal Head/Neck/Chest: full ROM of neck Neurologic moves all extremities and awake Psychiatric Orientation: alert and oriented x 3
[2022-09-15] MEDS ORDERED: METOPROLOL TARTRATE 1 MG/ML VIAL IV ONE (07:26)
--- NOTE | 2022-09-15 07:38 | Cardioversion ---
Date of Service September 15, 2022 Electrical Cardioversion Rpt Electrical Cardioversion Report Patient seen and examined. Procedure explained in detail, informed consent obtained. Formal TIMEOUT performed. Patient sedated via anesthesia consult with continous 02, BP, HR endtidal CO2 monitor. Synchronized electrical cardioversion performed with 150, 200J shock with conversion to sinus, wandering atrial pacemaker. Metoprolol tartrate 2.5 mg IV x 2 given Patient aroused tolerating well.
[2022-09-15] MEDS ORDERED: PROPOFOL IV EMULSION 10 MG/ML 20 ML VIAL IV ONE (07:39)
[2022-09-15] MEDS ORDERED: LIDOCAINE 2% MPF LOCAL 5 ML VIAL ONE (07:39)
[2022-09-15] MEDS ORDERED: ACETAMINOPHEN 325 MG TAB PO PRN (08:35)
[2022-09-15] MEDS ORDERED: ALBUTEROL HFA 8 GM INHALER INH PRN (08:46)
[2022-09-15] MEDS ORDERED: 0.2 MICRON FILTER SET 1 EACH IV STA (08:48)
[2022-09-15] MEDS ORDERED: AMIODARONE / D5W 150 MG/100 ML BAG IV STA (08:48)
[2022-09-15] MEDS ORDERED: STAT IV Infusion **Titration per Protocol STA (08:48)
[2022-09-15] MEDS ORDERED: AMIODARONE IV BOLUS & DRIP IV ONE (08:48)
--- NOTE | 2022-09-15 08:53 | Communication Note ---
Date of Service: September 15, 2022 Patient underwent synchronized electrical cardioversion for atrial fibrillation with poor ventricular response rate control. Post cardioversion patient returned to sinus rhythm but has been having salvos of atrial fibrillation. Discussed options of management in detail with patient. We will plan on admission for initiation of antiarrhythmic therapy. We will begin with IV amiodarone then transition to oral EKGs ordered today, in a.m. Warfarin dose reduced to 2.5 mg daily BMP in a.m. Discussed with patient and who were agreeable
[2022-09-15] MEDS ORDERED: AMIODARONE 360MG / 200ML D5W (CATH LAB USE ONLY) IV ONE (08:57)
[2022-09-15] MEDS ORDERED: AMIODARONE 150MG / 100ML D5W (CATH LAB USE ONLY) IV ONE (08:57)
[2022-09-15] MEDS ORDERED: AMIODARONE / D5W 360 MG/200 ML BAG IV ONE (09:00)
[2022-09-15 11:18] LABS: Prothrombin Time 39.9 Seconds (9.0-12.0)
[2022-09-15] MEDS: CHOLECALCIFEROL 400 UNITS 10 MCG TAB PO SCH (11:21)
--- NOTE | 2022-09-15 11:34 | Anesthesiology Progress Note ---
Date of Service September 15, 2022 Anesthesia Post Procedure Vital Signs Vital Signs: Temp Pulse Pulse Resp BP BP Pulse Ox 09/15/22 11:11 92 H 09/15/22 10:13 36.4 C L 89 18 110/68 94 09/15/22 09:30 89 16 115/61 94 09/15/22 09:00 100 H 18 103/67 94 09/15/22 08:30 96 H 113/75 09/15/22 08:45 96 H 18 113/75 94 09/15/22 08:30 100 H 16 110/79 94 09/15/22 08:15 93 H 18 135/46 L 94 09/15/22 08:00 83 16 105/67 94 09/15/22 07:45 81 18 106/67 93 09/15/22 07:31 84 19 108/71 97 09/15/22 06:59 36.9 C 110 H 16 96 O2 Del Method 09/15/22 11:11 09/15/22 10:13 Room Air 09/15/22 09:30 Room Air 09/15/22 09:00 Room Air 09/15/22 08:30 09/15/22 08:45 Room Air 09/15/22 08:30 Room Air 09/15/22 08:15 Room Air 09/15/22 08:00 Room Air 09/15/22 07:45 Room Air 09/15/22 07:31 Room Air 09/15/22 06:59 Room Air Transfer of Care Handoff Completed per policy Notes Mental Status: alert / awake / arousable and participated in evaluation Patient Amnestic to Procedure: Yes Nausea / Vomiting: adequately controlled Pain: adequately controlled Airway Patency, RR, SpO2: stable & adequate BP & HR: stable & adequate Hydration State: stable & adequate Anesthetic Complications: no major complications apparent
--- NOTE | 2022-09-15 13:07 | Electrocardiogram Report ---
Test Reason : Blood Pressure : / mmHG Vent. 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
--- NOTE | 2022-09-15 13:38 | Electrocardiogram Report ---
Test Reason : Blood Pressure : / mmHG Vent. 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
[2022-09-15] MEDS: AMIODARONE / D5W 360 MG/200 ML BAG IV SCH (14:51)
[2022-09-15] MEDS ORDERED: WARFARIN SOD 2.5 MG TAB PO SCH (16:00)
[2022-09-15] MEDS: METOPROLOL SUCC 25MG EXT REL TAB PO SCH (20:46)
[2022-09-15] MEDS ORDERED: MELATONIN 3 MG TAB PO PRN (21:14)
[2022-09-16] MEDS: AMIODARONE / D5W 360 MG/200 ML BAG IV SCH (03:07)
[2022-09-16 07:19] LABS: INR 4.8 (0.9-1.1); Prothrombin Time 47.5 Seconds (9.0-12.0)
[2022-09-16] MEDS: METOPROLOL SUCC 25MG EXT REL TAB PO SCH (08:35)
[2022-09-16] MEDS: CHOLECALCIFEROL 400 UNITS 10 MCG TAB PO SCH (08:35)
[2022-09-16 08:49] LABS: BUN Creatinine Ratio 16.1 (10-20); Calcium 8.6 mg/dl (8.6-10.3); Creatinine Clr Calc Pharmacy 59.1 ml/min; Est GFR (African American) 84.1 ml/min; Est GFR (Non-African American) 72.5 ml/min; Potassium 3.8 mmol/L (3.5-5.1)
--- NOTE | 2022-09-16 10:11 | Cardiology Progress Note ---
Date of Service September 16, 2022 Assessment & Plan (1) Paroxysmal atrial fibrillation: (2) Asthma: Plan 89-year-old with paroxysmal atrial fibrillation status post synchronized electrical cardioversion. Had successful return to sinus rhythm but with intermittent salvos of atrial fibrillation post procedure. Now admitted for initiation of antiarrhythmic therapy with amiodarone. IV infusion transitioning to oral dosing this morning. QT mildly prolonged. Warfarin on hold as expected with INR increase Plan: Begin amiodarone 200 mg twice per day Continue metoprolol succinate 25 mg twice per day as reduced dose Supplement potassium 40 mill equivalents this morning Continue to hold warfarin with ultimate goal transition to Eliquis given concurrent use of amiodarone PT evaluation. Discussed in detail with patient and he is agreeable to consideration of rehab training given falls and gait instability recent decline in overall exercise tolerance Admission and Anticipated Discharge Date Admission Date: September 15, 2022 Subjective Patient seen and examined, chart, medications, telemetry reviewed. Paroxysmal atrial fibrillation much improved after IV amiodarone infusion overnight. No cardiac complaints. No dizziness or lightheadedness. Still remains unsteady on feet but ambulatory. INR increased as expected with amiodarone Review of Systems Review of Systems: All systems reviewed & are unremarkable except as noted in Subjective Physical Exam Constitutional: WD/WN, vitals as above Eyes: PERRL, conjunctivae normal, anicteric sclerae Neck: trachea midline, no thyromegaly Respiratory: normal respiratory effort, lungs clear to auscultation Cardiovascular: Rate/Rhythm: regular rate and regular rhythm Heart Sounds: normal S1 and normal S2 Vessels: no JVD Extremities: + edema (Trace) Gastrointestinal (Abdomen): normal bowel sounds, soft, nontender, no hepatosplenomegaly Results & Data Vital Signs (Past 12 Hours) Vital Signs Temp Pulse Pulse Resp BP Pulse Ox O2 Del Method 09/16/22 07:28 36.7 C 74 18 125/75 94 Room Air 09/16/22 02:23 36.5 C 72 16 109/69 93 Room Air 09/16/22 00:00 84 09/15/22 23:41 Room Air 09/15/22 22:55 36.9 C 73 18 104/58 L 90 Room Air Laboratory Results Laboratory Results - last 24 hr 09/15/22 09/16/22 09/16/22 10:17 05:42 05:42 PT 39.9 H 47.5 H INR 4.0 H 4.8 H Sodium 137 Potassium 3.8 Chloride 100 Carbon Dioxide 30 Anion Gap 7 BUN 15 Creatinine 0.93 Est Cr Clr Drug Dosing 59.1 Est GFR ( Amer) 84.1 Est GFR (Non-Af Amer) 72.5 BUN/Creatinine Ratio 16.1 Glucose 108 H Calcium 8.6
[2022-09-16] MEDS ORDERED: POTASSIUM CHLORIDE CRTAB 20 MEQ TABCR PO ONE (10:14)
[2022-09-16] MEDS ORDERED: METOPROLOL SUCC 25MG EXT REL TAB PO STA (10:16)
[2022-09-16] MEDS ORDERED: AMIODARONE 200 MG TAB PO SCH ×2 (12:00→17:00)
--- NOTE | 2022-09-16 14:25 | Discharge Summary ---
Date of Service September 16, 2022 Admission HPI Per Admitting Provider Patient is an 89-year-old male with newly observed atrial fibrillation with poor tolerance due to elevated heart rate with increasing fatigue and shortness of breath. Increasing gait instability. Patient was referred for synchronized electrical cardioversion as an outpatient initially as part of treatment of underlying cardiac issues. LV systolic function is preserved Patient underwent synchronized electrical cardioversion with conversion to sinus rhythm but short salvos of atrial fibrillation frequently after. He was referred for inpatient initiation of IV amiodarone Admission Exam (Per Admitting) Constitutional WD/WN, vitals as above Eyes PERRL, conjunctivae normal, anicteric sclerae Neck trachea midline, no thyromegaly Respiratory normal respiratory effort, lungs clear to auscultation Cardiovascular Rate/Rhythm: regular rate and regular rhythm Heart Sounds: normal S1 and normal S2 Vessels: no JVD Extremities: + edema (Trace) Gastrointestinal (Abdomen) normal bowel sounds, soft, nontender, no hepatosplenomegaly Specialty Data Cardiology Following IV load of amiodarone rhythm issues of atrial fibrillation reduced. Medication switched to amiodarone 20 mg twice per day for 1 week then once daily Metoprolol succinate reduced to 25 mg twice per day Patient previously anticoagulated with warfarin and with initiation of amiodarone had rise in INR. Medication was held and ultimately discontinued with goals of switching to Eliquis 5 mg twice per day once INR less than 2 Discharge Data Procedures Performed Operation Date: 09/15/22 07:15 Actual Procedures p Cardioversion - Nabil Coates MD Hospital Course (1) Paroxysmal atrial fibrillation: (2) Asthma: Plan 89-year-old with paroxysmal atrial fibrillation status post synchronized electrical cardioversion. Had successful return to sinus rhythm but with intermittent salvos of atrial fibrillation post procedure. Now admitted for initiation of antiarrhythmic therapy with amiodarone. IV infusion transitioning to oral dosing this morning. QT mildly prolonged. Warfarin on hold as expected with INR increase Plan: Begin amiodarone 200 mg twice per day Continue metoprolol succinate 25 mg twice per day as reduced dose Supplement potassium 40 mill equivalents this morning Continue to hold warfarin with ultimate goal transition to Eliquis given concurrent use of amiodarone PT evaluation. Discussed in detail with patient and he is agreeable to consideration of rehab training given falls and gait instability recent decline in overall exercise tolerance
--- NOTE | 2022-09-16 16:48 | Electrocardiogram Report ---
Test Reason : Blood Pressure : / mmHG Vent. 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
[2022-09-16] MEDS ORDERED: METOPROLOL SUCC 25MG EXT REL TAB PO SCH (21:00)
== END 2022-09-16 14:50 | DRG 310 ==
LOC: CC 06:18 → 4W 08:38 → OBSVTOIN 08:38 → INTOOBSV 08:38